=== PATIENT | female | born 1955 | race Caucasian/White ===

== ENCOUNTER 2020-02-27 14:24 | Emergency (ER) | payer OTHER, SELFPAY ==
--- NOTE | ~2020-02-27 | XR_ITS ---
EXAMINATION: XR chest 2V DATE: 02/27/2020 15:06 INDICATION: Cough with left-sided chest pain. TECHNIQUE: frontal and lateral views of the chest were obtained. COMPARISON: Chest radiograph dated 07/20/2004 FINDINGS: Scattered reticulonodular opacities in both lungs most prominent in the right upper lung zone. Mild l inear discoid atelectasis in the right mid lung and at the right costophrenic angle. No pleural effus ion or pneumothorax. The cardiomediastinal silhouette is normal. Calcified left hilar lymph nodes con sistent with old granulomatous disease. Atherosclerotic aorta. Cholecystectomy clips in the right upp er quadrant. IMPRESSION: 1. Bilateral reticulonodular opacities in the acute setting concerning for pneumonia. Differential wo uld include metastatic disease if there is a known history of malignancy although the lower lungs ranulfo ear clear on the CT study dated 09/03/2019. Recommend radiographic follow-up to resolution. Reviewed, dictated and finalized at location A. IMPRESSION: 1. Bilateral reticulonodular opacities in the acute setting concerning for pneu monia. Differential would include metastatic disease if there is a known histor y of malignancy although the lower lungs appear clear on the CT study dated . Recommend radiographic follow-up to resolution.
[2020-02-27 14:45] VITALS: BP 143/97; PULSE 74; RESP 18; TEMP 36.8; O2SAT 97
--- NOTE | 2020-02-27 14:56 | ED.GENADULT ---
HPI - General Adult General Chief complaint: Upper Respiratory Infection Stated complaint: cough/left rib pain History of Present Illness HPI narrative: This is a 64 year old that comes in complaiining of coughing and not feeling well. Patient denies having a fever but has been coughing and states that she is prone to pneumonia and she feels horrible. Patient states she would like to have a xray. Patient denies any diarrhea, vomiting, fever or shortness of breath Related Data Home Medications Medication Instructions Recorded Confirmed dicyclomine 20 mg tablet 20 mg PO BID 09/20/19 mesalamine 400 mg capsule (with 400 mg PO QID 11/01/19 delayed release tablets inside) magnesium oxide 02/27/20 Allergies Allergy/AdvReac Type Severity Reaction Status Date / Time codeine Allergy Unknown Unknown Verified 01/13/20 14:10 thiopental Allergy Unknown CONFUSION Verified 01/13/20 14:10 Review of Systems Review of Systems: Narrative: CONSTITUTIONAL: Denies fever, chills, or sweats. Malaise and fatigue EYES: Denies visual changes, redness, or discharge. ENT: Denies rhinorrhea, congestion, sore throat, or otalgia. Coughing CARDIOVASCULAR:Denies chest pain, palpitations, or edema. RESPIRATORY: Denies cough or dyspnea. GASTROINTESTINAL: Denies abdominal pain, nausea, vomiting, or diarrhea. GENITOURINARY: Denies dysuria or hematuria. SKIN:[Denies rash or itching. MUSCULOSKELETAL:Denies back pain, joint pain, or myalgia. NEUROLOGIC: Denies headache, numbness, or weakness. PSYCHIATRIC:Denies anxiety or depression PMFSH Social History Social History Smoking status: Current every day smoker Alcohol intake: never Comments At time as signature, I have reviewed and agree with nursing past medical, social, surgical and family history. Please see nursing chart for further information. There is no relevant family history pertinent to the presenting complaint. Exam Narrative: Exam Narrative: GENERAL:Well-appearing, well-nourished, and in no acute distress. Patient disheveled HEAD:Normocephalic, atraumatic. EYES: PERRLA and EOMI. ENT: Nares clear, no rhinorrhea or epistaxis. Mucous membranes moist. Right lung slightly diminished in upper lobe NECK: Supple. CHEST: Clear to auscultation. No respiratory distress. HEART: Regular rate and rhythm. No murmur heard. Normal peripheral pulses. ABDOMEN: Soft, nontender, nondistended, normal active bowel sounds. EXTREMITIES: Normal range of motion. No edema. SKIN: Warm, dry, no rash. NEURO: No focal deficits. Alert and oriented x3. Course Vital Signs Vital signs: Vital Signs Temperature 98.2 F 02/27/20 14:45 Pulse Rate 74 02/27/20 14:45 Respiratory Rate 18 02/27/20 14:45 Blood Pressure 143/97 H 02/27/20 14:45 Pulse Oximetry 97 02/27/20 14:45 Temperature 98.2 F 02/27/20 14:45 Pulse Rate 74 02/27/20 14:45 Respiratory Rate 18 02/27/20 14:45 Blood Pressure 143/97 H 02/27/20 14:45 Pulse Oximetry 97 02/27/20 14:45 Medical Decision Making Vital Signs Vital Signs: Vital Signs Temperature 98.2 F 02/27/20 14:45 Pulse Rate 74 02/27/20 14:45 Respiratory Rate 18 02/27/20 14:45 Blood Pressure 143/97 H 02/27/20 14:45 Pulse Oximetry 97 02/27/20 14:45 Temperature 98.2 F 02/27/20 14:45 Pulse Rate 74 02/27/20 14:45 Respiratory Rate 18 02/27/20 14:45 Blood Pressure 143/97 H 02/27/20 14:45 Pulse Oximetry 97 02/27/20 14:45 Discharge Plan Discharge Clinical Impression: Pneumonia Qualifiers: Pneumonia type: due to unspecified organism Laterality: unspecified laterality Lung location: upper lobe of lung Qualified Code(s): J18.9 - Pneumonia, unspecified organism Patient Disposition: Home, Self-Care Condition: Stable Instructions: Antibiotic Form, Community Acquired Pneumonia (ED) Additional Instructions: As we discussed you need to call your primary care prov
== END 2020-02-27 15:35 | disposition home or self-care (01) ==
PROVIDERS: Emergency Provider Nurse Practitioner Family; PCP Family Medicine
DX: J18.9 Pneumonia, unspecified organism (principal); I10 Essential (primary) hypertension; F17.200 Nicotine dependence, unspecified, uncomplicated
CPT/HCPCS: 71046; 99213; G0463

== ENCOUNTER 2020-03-30 17:01 | Outpatient (CLI) | payer OTHER, SELFPAY ==
--- NOTE | ~2020-03-30 | XR_ITS ---
EXAMINATION: XR chest 2V DATE: 03/30/2020 17:31 INDICATION: Other nonspecific abnormal finding lung field, left-sided chest pain TECHNIQUE: PA and lateral views of the chest are obtained. COMPARISON: 02/27/2020 FINDINGS: The previously described nodular opacities have nearly completely resolved. There are are p ersistent reticular and airspace opacities in the lungs, right greater than left. There is no pleural effusion or pneumothorax. There is no pleural effusion or pneumothorax. The cardiomediastinal silhou ette is normal. There is mild thoracic spondylosis. Calcified left hilar lymph nodes are consistent w ith old granulomatous disease. Surgical clips in the right upper quadrant are likely from prior rosalva cystectomy. IMPRESSION: 1. Persistent reticular and airspace opacities in the lungs with resolution of the previously identif ied nodular opacities, most likely resolving pneumonia. Reviewed, dictated and finalized at location A. IMPRESSION: 1. Persistent reticular and airspace opacities in the lungs with resolution of the previously identified nodular opacities, most likely resolving pneumonia.
[2020-03-30 18:08] LABS: Basophils Absolute Auto 0.1 K/mm3 (0.0-0.1); Basophils Percent Auto 0.7 % (0.2-1.2); Eosinophils Absolute Auto 0.2 K/mm3 (0-0.3); Eosinophils Percent Auto 2.5 % (0-4.4); Hematocrit 38.6 % (37.0-47.0); Hemoglobin 12.6 g/dL (12.0-15.0); Immature Granulocyte Absolute 0.04 K/mm3 (0.00-0.031); Immature Granulocyte Percent A 0.5 % (0-0.5); Lymphocytes Absolute Auto 2.48 K/mm3 (0.9-3.2); Lymphocytes Percent Auto 29.4 % (18.3-44.2); Mean Corpuscular HGB Conc 32.6 g/dl (32-36); Mean Corpuscular Volume 94.8 fl (80-100); Monocytes Absolute Auto 0.7 K/mm3 (0.1-0.6); Monocytes Percent Auto 8.8 % (2.6-8.5); Neutrophils Absolute Auto 4.9 K/mm3 (1.3-6.7); Neutrophils Percent Auto 58.1 % (45.5-73.1); Platelet Count Result 334 k/mm3 (150-375); Red Blood Count 4.07 M/mm3 (4.2-5.4); Red Cell Distribution Width 13.5 % (11.5-14.5); White Blood Count 8.4 K/mm3 (4.5-10.0)
[2020-03-30 18:25] LABS: Blood Urea Nitrogen 9 mg/dL (7-17); Calcium 10.5 mg/dL (8.4-10.2); Carbon Dioxide 28 mmol/L (22-30); Chloride 103 mmol/L (98-107); Estimated Glomerular Filt Rate > 60; Glucose 88 mg/dL (65-105); Sodium 135 mmol/L (137-145)
== END 2020-03-30 17:02 | disposition home or self-care (01) ==
LOC: ANHIMG 17:05
PROVIDERS: PCP Family Medicine; Visit Provider Nurse Practitioner Family
DX: R91.8 Other nonspecific abnormal finding of lung field (principal); R05 Cough; R53.1 Weakness; D64.9 Anemia, unspecified
CPT/HCPCS: 36415; 71046; 80048; 85025

== ENCOUNTER 2020-04-08 19:35 | Inpatient (IN) | payer OTHER, SELFPAY ==
--- NOTE | ~2020-04-08 | CT_ITS ---
EXAMINATION: CTA chest PE protocol DATE: 04/09/2020 07:37 CDT INDICATION: Syncope. Shortness of breath. TECHNIQUE: Computed tomographic angiography (CTA) of the chest was performed with 100 mL Omnipaque-35 0 intravenous contrast. The dose-length product was 232.22 mGy-cm. Maximum intensity projection 3D-re constructions of the aorta and other arteries were constructed by the technologist on a separate work station. Automated exposure control and iterative reconstruction technique were employed. COMPARISON: Chest x-ray dated 04/08/2020. FINDINGS: Study is limited by respiratory motion and beam hardening artifact which limits evaluation of the right upper lobe distal segmental and subsegmental pulmonary arteries. No pulmonary embolism i dentified in the remainder of the pulmonary arteries. No evidence for thoracic aortic aneurysm or dis section. Trace pericardial effusion. There is atherosclerosis of the aorta and coronary arteries. Tra ce right pleural effusion. Numerous reticulonodular densities bilaterally predominantly affecting the upper lobes, although ther e are additional nodular densities in the lower lobes. There is mild-moderate right upper lobe bronch ial wall thickening with mucous plugging distally. There is mediastinal and right hilar lymphadenopat hy. There is evidence for chronic granulomatous disease. There are multiple hypovascular lesions of t he liver, largest measuring 2.3 cm in the right hepatic lobe, concerning for metastatic disease. Ther e are small focal sclerotic lesions in T8 and T9 vertebral bodies as well as faint sclerotic densitie s throughout multiple thoracic vertebral bodies, suspicious for metastatic disease. IMPRESSION: 1. No large central pulmonary embolism. Limited evaluation of the right upper lobe segmental and subs egmental pulmonary arteries due to respiratory motion and beam hardening artifact. 2: Numerous reticulonodular densities in both lungs with small focal irregular foci of consolidation and septal thickening, concerning for widespread pulmonary metastatic disease and possible lymphangit ic carcinomatosis in the additional hepatic and osseous findings. Reviewed, dictated and finalized at location A. IMPRESSION: 1. No large central pulmonary embolism. Limited evaluation of the right upper l obe segmental and subsegmental pulmonary arteries due to respiratory motion and beam hardening artifact. 2: Numerous reticulonodular densities in both lungs with small focal irregular foci of consolidation and septal thickening, concerning for widespread pulmonar y metastatic disease and possible lymphangitic carcinomatosis in the additional hepatic and osseous findings.
--- NOTE | ~2020-04-08 | XR_ITS ---
XR chest 2V 04/08/2020 20:17 Indication: History of pneumonia. Dyspnea. Procedure: 2 view chest Comparison: 03/30/2020 Findings: There has been progression of right upper lobe pneumonia. Heart size normal. Left lung reji r. Elevated right diaphragm. No pleural effusion or pneumothorax. Impression: 1: Interval progression of right upper lobe pneumonia. Reviewed, dictated and finalized at location A. Impression: 1: Interval progression of right upper lobe pneumonia.
--- NOTE | ~2020-04-08 | CT_ITS ---
EXAMINATION: CT abdomen pelvis w con DATE: 04/09/2020 08:59 INDICATION: Metastatic disease. Weakness. TECHNIQUE: Computed tomography (CT) of the abdomen and pelvis was performed with 100 cc Omnipaque 350 intravenous contrast. The dose-length product was 868.10 mGy-cm. Automated exposure control and iter ative reconstruction technique were employed. COMPARISON: CT dated 09/03/2019 FINDINGS: There are numerous reticulonodular densities in the visualized lung parenchyma preferential ly affecting the upper lobes, consistent with metastatic disease. Right hilar lymphadenopathy partial ly visualized. Heart size normal. Trace right pleural effusion. Interval development of multiple hypovascular masses of the liver involving both lobes, compatible wi th metastatic disease. There are calcified granulomas of the spleen. The pancreas, adrenal glands and right kidney are unremarkable. There is a subcentimeter hypodensity of the left kidney, most likely benign cysts. There is atherosclerosis of the aorta without evidence for aneurysm. There is nodular i nfiltration of the peritoneum of the mid and lower abdomen anteriorly, suspicious for peritoneal carc inomatosis. Appendix is normal. Colonic diverticulosis without evidence for diverticulitis. Multiple enlarged periuterine veins, which can be associated with pelvic congestion syndrome. Scattered small sclerotic lesions of the pelvis and spine, consistent with metastatic disease. IMPRESSION: 1. Widespread metastatic disease including innumerable reticulonodular densities in the visualized mick ng parenchyma, right hilar lymphadenopathy, multiple hypovascular masses of the liver, scattered scle rotic lesions of the visualized bones as well as probable peritoneal carcinomatosis. Reviewed, dictated and finalized at location A. IMPRESSION: 1. Widespread metastatic disease including innumerable reticulonodular densitie s in the visualized lung parenchyma, right hilar lymphadenopathy, multiple hypo vascular masses of the liver, scattered sclerotic lesions of the visualized bon es as well as probable peritoneal carcinomatosis.
--- NOTE | ~2020-04-08 | US_ITS ---
EXAMINATION: US biopsy liver DATE: 04/10/2020 12:07 INDICATION: Liver mass. TECHNIQUE: The procedure including the risks, benefits, and alternatives was discussed with the patie nt. Risks discussed included bleeding and infection. The patient understood the risks and agreed to p roceed. The skin overlying the liver was prepped and draped in usual sterile fashion. Anesthetic was administered with 1% lidocaine subcutaneously. An 18 gauge core biopsy needle was then used to obta in 4 core biopsy specimens under continuous sonographic guidance. The entry site was cleaned and dres sed. There were no immediate complications. FINDINGS: Ultrasound images demonstrate the needle in a 3.0 x 2.2 cm mass in left hepatic lobe. IMPRESSION: 1. Ultrasound-guided core needle biopsy of a liver mass. Reviewed, dictated and finalized at location A.
--- NOTE | ~2020-04-08 | CT_ITS ---
EXAMINATION: CT brain w con DATE: 04/09/2020 08:58 INDICATION: Metastatic disease. Evaluate for brain mass. TECHNIQUE: Computed tomography (CT) of the head was performed with 100 cc Omnipaque 350 intravenous c ontrast. The dose-length product was 605.33 mGy-cm. Automated exposure control and iterative reconstr uction technique were employed. COMPARISON: CT dated 09/08/2018 FINDINGS: No acute infarction or hemorrhage. No abnormal contrast enhancement. No focal masses or mas s effect. There are scattered mild periventricular and subcortical white matter changes, most likely related to small vessel ischemic disease (microangiopathy). IMPRESSION: 1. No evidence for intracranial metastases. No acute intracranial abnormality. 2: Chronic age-related findings. Reviewed, dictated and finalized at location A.
[2020-04-08 19:42] VITALS: BP 136/64; PULSE 59; RESP 19; TEMP 36.2; O2SAT 100
[2020-04-08 20:05] VITALS: PULSE 62
--- NOTE | 2020-04-08 20:08 | ECG_ITS ---
Measurements Intervals Guild Rate: 58 P: 58 MS: 157 QRS: 38 QRSD: 106 T: 72 QT: 394 QTc: 388 Interpretive Statements SINUS BRADYCARDIA BORDERLINE ST-T WAVE ABNORMALITY- LATERAL LEADS BORDERLINE ECG Electronically Signed On 04-09-2020 7:27:34 CDT by Kwan Prieto D.O.
[2020-04-08 20:13] LABS: Basophils Absolute Auto 0.1 K/mm3 (0.0-0.1); Basophils Percent Auto 0.5 % (0.2-1.2); Eosinophils Absolute Auto 0.2 K/mm3 (0-0.3); Eosinophils Percent Auto 1.1 % (0-4.4); Hematocrit 37.5 % (37.0-47.0); Hemoglobin 12.5 g/dL (12.0-15.0); Immature Granulocyte Percent A 1.5 % (0-0.5); Lymphocytes Absolute Auto 3.09 K/mm3 (0.9-3.2); Lymphocytes Percent Auto 23.5 % (18.3-44.2); Mean Corpuscular HGB Conc 33.3 g/dl (32-36); Mean Corpuscular Volume 93.1 fl (80-100); Mean Platelet Volume 9.1 fl (7.4-10.4); Monocytes Absolute Auto 1.2 K/mm3 (0.1-0.6); Monocytes Percent Auto 9.1 % (2.6-8.5); Neutrophils Absolute Auto 8.5 K/mm3 (1.3-6.7); Neutrophils Percent Auto 64.3 % (45.5-73.1); Platelet Count Result 387 k/mm3 (150-375); Red Blood Count 4.03 M/mm3 (4.2-5.4); Red Cell Distribution Width 13.4 % (11.5-14.5); White Blood Count 13.2 K/mm3 (4.5-10.0)
[2020-04-08 20:21] VITALS: BP 162/60; PULSE 64
--- NOTE | 2020-04-08 20:22 | ED.GENADULT ---
HPI - General Adult General Chief complaint: Syncope Stated complaint: syncopal episode 3 days ago Time Seen by Provider: 04/08/20 19:55 Source: RN notes reviewed History of Present Illness HPI narrative: Patient presents emergency department from home for weakness. Patient states 2 days ago she got up to use the restroom and states that time she felt weak and clammy. She states that she had lower herself to the ground and had to lay there for several hours. States that since that time she has been having generalized weakness. She states is associated with some mild nausea as well as some mild pain in the bilateral flank. She denies any fevers or chills chest pain shortness of breath cough vomiting diarrhea or any other symptoms. States she called her PCP today Dr. Maldonado instructed her to come to the emergency department for further evaluation Related Data Home Medications Medication Instructions Recorded Confirmed amlodipine 5 mg PO DAILY 04/08/20 metoprolol succinate 100 mg PO BID 04/08/20 Allergies Allergy/AdvReac Type Severity Reaction Status Date / Time codeine Allergy Unknown Unknown Verified 04/08/20 23:29 thiopental Allergy Unknown CONFUSION Verified 04/08/20 23:29 Review of Systems Review of Systems: Narrative: Gen.: Denies fevers or chills Eyes: Denies eye pain or visual change ENT: Denies congestion Respiratory: Denies shortness of breath or cough CV: Denies chest pain or palpitations GI: Denies abdominal pain reports nausea denies emesis or diarrhea denies burning, urgency, frequency or hematuria Musculoskeletal: Denies back pain or muscle pain Neuro: Denies numbness, tingling, reports weakness and dizziness Skin: Denies rash Except as documented, all other systems reviewed and negative [facility] Past Medical History Medical History Anemia Anxiety Cerebrovascular small vessel disease Crohn's disease Essential hypertension GERD without esophagitis Hyperlipidemia, unspecified Hypokalemia Hypomagnesemia Hyponatremia Insomnia Reticulonodular infiltrate present on imaging of chest Vitamin D deficiency Social History Social History Smoking status: Current every day smoker Alcohol intake: never Gender identity (if verbalized by the patient): Female Exam Narrative: Exam Narrative: APPEARANCE: No acute distress, nontoxic, resting in bed EYES: EOMI, Leland HEENT: Normocephalic, atraumatic, oromucosa dry no erythema exudate posterior pharynx RESPIRATORY: No respiratory distress Clear to auscultation bilaterally with no rhonchi wheezing or rales. CARDIOVASCULAR: Regular rate and rhythm without murmurs rubs or gallops. ABDOMINAL: Soft, nontender, nondistended, no rebound or guarding MUSCULOSKELETAl: Moves all extremities. No clubbing, cyanosis or edema. NEURO: Awake and alert x 3. Following commands, speech normal, no focal deficits SKIN:: Warm, dry. No rashes lesions or abrasions PSYCHIATRIC: Normal affect/mood, Course Course Emergency Course: Discussed with Dr. Villafana agrees with admission at this time recommend starting patient Rocephin and Zithromax request CT scan of chest rule out for mass Discussed with patient and family results of workup and diagnosis. Discussed need for admission. Patient and family understand and agree to current treatment plan. Did discuss with the patient CT of the chest with concern of cancer and need for further work-up all questions answered Vital Signs Vital signs: Vital Signs Temperature 97.1 F L 04/08/20 19:42 Pulse Rate 59 L 04/08/20 19:42 Respiratory Rate 19 04/08/20 19:42 Blood Pressure 136/64 04/08/20 19:42 Pulse Oximetry 100 04/08/20 19:42 Temperature 97.1 F L 04/08/20 19:42 Pulse Rate 68 04/08/20 23:09 Respiratory Rate 18 04/08/20 23:09 Blood Pressure 166/114 H 04/08/20 23:09 Pulse Oximetry 100 04/08/20 23:09
[2020-04-08 20:26] LABS: Blood Urea Nitrogen 15 mg/dL (7-17); Calcium 10.2 mg/dL (8.4-10.2); Carbon Dioxide 31 mmol/L (22-30); Chloride 97 mmol/L (98-107); Estimated CRCL calculation 54 ml/min; Estimated Glomerular Filt Rate > 60; Glucose 133 mg/dL (65-105); Potassium 3.1 mmol/L (3.4-5.0); Sodium 133 mmol/L (137-145)
[2020-04-08] MEDS: SODIUM CHLORIDE 0.9% IV 1,000 ML 999 ML IV CONT (20:32)
[2020-04-08 20:44] LABS: INR 1.1; Prothrombin Time 13.5 Seconds (11.1-14.7)
[2020-04-08 20:45] LABS: Partial Thromboplastin Time 31.1 SECONDS (22.3-36.8)
[2020-04-08 21:16] LABS: Alanine Aminotransferase 17 U/L (4-35); Albumin Level 3.8 g/dL (3.5-5.1); Alkaline Phosphatase 98 U/L (38-126); Aspartate Amino Transferase 31 U/L (14-36); Bilirubin,Total 0.8 mg/dL (0.2-1.3)
[2020-04-08 21:27] LABS: Troponin I < 0.012 ng/mL (0.000-0.034)
[2020-04-08 21:36] LABS: Add Urine Microscopic? YES; Appearance Urine Clear (Clear); Bacteria Urine 2+ /hpf; Bilirubin Urine Negative (Negative); Blood Urine Negative (Negative); Color Urine Straw (Yellow); Glucose Urine UA Negative (Negative); Ketones Urine Negative (Negative); Leukocyte Esterase Ur Trace LEU/UL (Negative); Nitrate Urine Negative (Negative); Protein Urine Negative (Negative); RBC Urine 0-2 /hpf (0-2); Specific Grav Ur 1.009 (1.001-1.035); Squamous Epithelial Cell Urine Occasional /hpf (Few); Urobilinogen Urine Negative mg/dL (<2.0)
[2020-04-08 21:38] VITALS: BP 164/62; PULSE 71
[2020-04-08 21:41] VITALS: BP 135/93; PULSE 72
[2020-04-08] MEDS: POTASSIUM CHLORIDE 20 MEQ TABLET 40 MEQ PO (23:03)
[2020-04-08 23:09] VITALS: BP 166/114; PULSE 68; RESP 18; O2SAT 100
[2020-04-09] VITALS (13 sets, daily range): BP systolic 125–166; BP diastolic 56–92; PULSE 57–68; RESP 14–20; TEMP 35.9–36.8; O2SAT 97–100; BMI 28.5
[2020-04-09] MEDS: SODIUM CHLORIDE 0.9% IV 1,000 ML 80 ML IV CONT ×2 (01:31→13:43)
--- NOTE | 2020-04-09 02:05 | ADMGEN ---
This patient, Tena Medrano, was admitted to Medical Room [facility] at 0045 04/09/2020. Patient/family oriented to hospital policies and general routines including ID bracelet, bed and alarms, visiting hours, pain management, procedures, bathroom and other care routines, personal items, smoking policy, room service/diet, and visiting hours. Valuables list has been completed. Information on how to activate the Rapid Response Team has been discussed. Patient/Family are encouraged to report perceived risks to care and to ask questions if they do not understand what they are told or what they should do.
[2020-04-09 02:51] LABS: Troponin I < 0.012 ng/mL (0.000-0.034)
[2020-04-09 05:31] LABS: Basophils Absolute Auto 0.1 K/mm3 (0.0-0.1); Basophils Percent Auto 0.4 % (0.2-1.2); Eosinophils Absolute Auto 0.1 K/mm3 (0-0.3); Hematocrit 35.9 % (37.0-47.0); Hemoglobin 11.9 g/dL (12.0-15.0); Immature Granulocyte Absolute 0.12 K/mm3 (0.00-0.031); Immature Granulocyte Percent A 0.9 % (0-0.5); Lymphocytes Absolute Auto 2.27 K/mm3 (0.9-3.2); Lymphocytes Percent Auto 17.9 % (18.3-44.2); Mean Corpuscular HGB Conc 33.1 g/dl (32-36); Mean Corpuscular Volume 93.5 fl (80-100); Mean Platelet Volume 8.9 fl (7.4-10.4); Monocytes Absolute Auto 1.3 K/mm3 (0.1-0.6); Monocytes Percent Auto 9.8 % (2.6-8.5); Neutrophils Absolute Auto 8.9 K/mm3 (1.3-6.7); Platelet Count Result 338 k/mm3 (150-375); Red Blood Count 3.84 M/mm3 (4.2-5.4); Red Cell Distribution Width 13.4 % (11.5-14.5); White Blood Count 12.7 K/mm3 (4.5-10.0)
[2020-04-09 05:43] LABS: Blood Urea Nitrogen 11 mg/dL (7-17); Calcium 9.6 mg/dL (8.4-10.2); Carbon Dioxide 27 mmol/L (22-30); Chloride 101 mmol/L (98-107); Estimated CRCL calculation 63 ml/min; Estimated Glomerular Filt Rate > 60; Glucose 90 mg/dL (65-105); Potassium 3.7 mmol/L (3.4-5.0); Sodium 134 mmol/L (137-145)
[2020-04-09 05:53] LABS: Troponin I < 0.012 ng/mL (0.000-0.034)
[2020-04-09] MEDS: ACETAMINOPHEN 325 MG TABLET 650 MG PO (05:59)
[2020-04-09] MEDS: ROSUVASTATIN 10 MG TABLET 40 MG PO (09:32)
[2020-04-09] MEDS: ESCITALOPRAM OXALATE 10 MG TABLET 20 MG PO (09:32)
[2020-04-09] MEDS: FAMOTIDINE 20 MG TABLET 40 MG PO (09:33)
[2020-04-09] MEDS: METOPROLOL SUCCINATE EXT REL 100 MG TABCR PO ×2 (09:33→20:50)
[2020-04-09] MEDS: LOSARTAN POTASSIUM 50 MG TABLET PO (09:33)
[2020-04-09] MEDS: AMLODIPINE BESYLATE 5 MG TABLET PO (09:33)
[2020-04-09] MEDS: KETOROLAC 15 MG/ML VIAL (*BKC) IV PUSH ×2 (09:36→22:37)
--- NOTE | 2020-04-09 10:42 | PM.IMHP ---
H&P: HPI History of Present Illness Chief complaint: Community aquired pneumonia, pulminary nodule Narrative: Tena Medrano is a 64 year old female history of COPD, current cigarette smoker, hypertension, ulcerative colitis, who presented to the emergency department with over 1 month of dry cough, generalized weakness, lack of energy, decreased appetite, and some weight loss. The patient states over a month ago she went to an urgent care and was diagnosed with pneumonia and prescribed amoxicillin. She was discharged home to follow-up with her primary care provider who repeated chest x-ray which continued to show pneumonia and at that time she was prescribed Levaquin. She was also tested for COVID due to her symptoms and it was negative. She followed up with her primary care again and they prescribed some steroids. Patient states she has not really felt any better and continued to have symptoms and came to the emergency room. She reports having a dry cough, and notice some shortness of breath when walking to the bathroom in the emergency department last night. Initial vitals showed, Temperature of 97.1?, blood pressure 136/64, heart rate 59, respiratory rate 19, oxygen saturation 100% on room air. Initial labs showed leukocytosis at 13,200, with some elevation to her monocytes slightly. Normal coag panel. CMP showed hyponatremia at 133, hypokalemia at 3.1, serum bicarb was slightly elevated at 31, troponins were negative x3. Urinalysis showed trace leukocyte esterase, WBCs 7-9, bacteria 2+. Chest x-ray showed interval progression of right upper lobe pneumonia. CTA chest was ordered which showed no PE. It did show Numerous reticulonodular densities in both lungs with small focal irregular foci of consolidation and septal thickening, concerning for widespread pulmonary metastatic disease and possible lymphangitic carcinomatosis in the additional hepatic and osseous findings. The patient was admitted into the hospital under observation for treatment of acute pneumonia to be started on IV ceftriaxone and azithromycin, further evaluation for possible metastatic cancer, consult to Oncology and further monitoring. Code status: Do not intubate [id number]: , Rosalino and her 2 sons, Crow and Mil Primary care provider: Dr. Maldonado Review of Systems Review of Systems: Narrative: She denies any fever, chills, vomiting, abdominal pain, leg swelling, calf pain, masses on her breast, or any other symptoms at this time. She reports having a headache for the last 4 days located at the top of her head and her bilateral temples. She reports associated photophobia and phonophobia. She denies any vision changes. She states earlier she was going down for a CT scan and became anxious and had some substernal sharp chest pains. She states that lasted a couple of minutes and it felt like needles sticking in the center of her chest. She denies any diaphoresis, nausea, shortness of breath, radiation of her pain, or any other symptoms. She states she thinks it is her anxiety because too many things were going on at this same time . She denies any more chest pain at this time. She states she has not eaten in 3 days due to her decreased appetite and states that she has decreased urination is well and believe she could be dehydrated. She denies any dysuria, or flank pain. She has been having some lower back pain for the last few days after she was laying on her floor for a few hours. She has these episodes that she has been having for the last 25 years intermittently where she suddenly becomes diaphoretic, clammy, dizzy and she feels like she is going to fall. This usually happens when she is on the toilet having a bowel movement but a few days ago it happened when she got up from bed. She had lowered herself onto the floor and she laid there for a few hours because of how she was feeling. She denies any syncope, head trauma, injury, falls, or any other sympto
[2020-04-09] MEDS: PANTOPRAZOLE 40 MG TABLET PO ×2 (11:34→20:50)
[2020-04-09] MEDS: NICOTINE (*PBKC) 7 MG PATCH 1 PATCH TRANSDERM (13:43)
[2020-04-09] MEDS: ALPRAZOLAM 0.5 MG TABLET PO (21:13)
[2020-04-10] VITALS (10 sets, daily range): BP systolic 147–160; BP diastolic 54–76; PULSE 59–78; RESP 16–24; TEMP 36.5–37; O2SAT 94–100
[2020-04-10] MEDS: SODIUM CHLORIDE 0.9% IV 1,000 ML 80 ML IV CONT ×2 (04:17→17:16)
[2020-04-10 06:05] LABS: Basophils Absolute Auto 0.1 K/mm3 (0.0-0.1); Basophils Percent Auto 0.5 % (0.2-1.2); Eosinophils Absolute Auto 0.1 K/mm3 (0-0.3); Eosinophils Percent Auto 1.4 % (0-4.4); Hematocrit 31.4 % (37.0-47.0); Hemoglobin 10.4 g/dL (12.0-15.0); Immature Granulocyte Absolute 0.09 K/mm3 (0.00-0.031); Immature Granulocyte Percent A 0.9 % (0-0.5); Lymphocytes Absolute Auto 2.62 K/mm3 (0.9-3.2); Lymphocytes Percent Auto 25.9 % (18.3-44.2); Mean Corpuscular HGB Conc 33.1 g/dl (32-36); Mean Corpuscular Volume 93.5 fl (80-100); Mean Platelet Volume 9.5 fl (7.4-10.4); Monocytes Absolute Auto 1.1 K/mm3 (0.1-0.6); Monocytes Percent Auto 10.6 % (2.6-8.5); Neutrophils Absolute Auto 6.1 K/mm3 (1.3-6.7); Neutrophils Percent Auto 60.7 % (45.5-73.1); Platelet Count Result 334 k/mm3 (150-375); Red Blood Count 3.36 M/mm3 (4.2-5.4); Red Cell Distribution Width 13.3 % (11.5-14.5); White Blood Count 10.1 K/mm3 (4.5-10.0)
[2020-04-10 06:19] LABS: Blood Urea Nitrogen 8 mg/dL (7-17); Calcium 9.6 mg/dL (8.4-10.2); Carbon Dioxide 25 mmol/L (22-30); Chloride 103 mmol/L (98-107); Estimated CRCL calculation 55 ml/min; Estimated Glomerular Filt Rate > 60; Glucose 90 mg/dL (65-105); Potassium 3.6 mmol/L (3.4-5.0); Sodium 132 mmol/L (137-145)
[2020-04-10] MEDS: NICOTINE (*PBKC) 7 MG PATCH 1 PATCH TRANSDERM (08:50)
--- NOTE | 2020-04-10 09:16 | PM.IMPN ---
Progress Note: A&P Assessment and Plan (1) Abnormal CT scan: Code(s): R93.89 - Abnormal findings on diagnostic imaging of other specified body structures Status: Acute Assessment and Plan: Found to have acute metastatic disease on imaging on arrival. CTA chest showed Numerous reticulonodular densities in both lungs with small focal irregular foci of consolidation and septal thickening, concerning for widespread pulmonary metastatic disease and possible lymphangitic carcinomatosis in the additional hepatic and osseous findings. CT chest abdomen pelvis with contrast showed Widespread metastatic disease including innumerable reticulonodular densities in the visualized lung parenchyma, right hilar lymphadenopathy, multiple hypovascular masses of the liver, scattered sclerotic lesions of the visualized bones as well as probable peritoneal carcinomatosis. CT brain with contrast did not show any metastases noted. I called Dr. Conway oncology who will evaluate the patient today. Patient is going to be going down for an ultrasound-guided liver biopsy today for further diagnosis for her cancer. Dr. Conway will evaluate the patient today and, with a further plan. Continue monitoring patient's symptoms. P.r.n. pain control as needed. (2) UTI (urinary tract infection): Code(s): N39.0 - Urinary tract infection, site not specified Status: Acute Assessment and Plan: UA was abnormal and she also reports having symptoms of decreased urination which could be secondary to some dehydration but the IV antibiotic she is receiving will treat an underlying UTI. Urine culture is growing Gram-negative bacilli. She is receiving IV ceftriaxone which should cover this and we will wait for urine cultures to finalize. (3) Community acquired pneumonia: Code(s): J18.9 - Pneumonia, unspecified organism Status: Acute Assessment and Plan: Chest x-ray initially showed right upper lobe pneumonia. While she is here we will start her on IV antibiotics, IV ceftriaxone and azithromycin for community-acquired pneumonia. Her vitals are stable at this time, afebrile, non tachycardic, normal oxygenation on room air but she has had leukocytosis. She continues to have a dry cough and had some shortness of breath with exertion. Will continue treatment at this time and monitoring her symptoms. (4) Acute hypokalemia: Code(s): E87.6 - Hypokalemia Status: Acute Assessment and Plan: Potassium is normal today at 3.6. Continue monitoring daily. (5) Tobacco abuse: Code(s): Z72.0 - Tobacco use Status: Acute Assessment and Plan: Smoking sensation given for 3 minutes. She would like a nicotine patch at this time and she states it has helped her in the past while she has been hospitalized. (6) Hyponatremia: Code(s): E87.1 - Hypo-osmolality and hyponatremia Status: Acute Assessment and Plan: She has a history of low sodium when I review her prior labs which appear to be 128-135. Could be secondary to her medications. But is stable at this time. Continue monitoring daily. Time Spent With Patient Time with patient: 25 - 35 minutes Subjective Date/time seen: 04/10/20 09:16 Interval history: Date of service 04/10/2020: The patient reports feeling anxious about her liver biopsy later today. She otherwise just feels very weak, fatigued and has no energy, which is the reason why she came into the hospital. She states her urination is becoming more frequent and clearing up in color. She denies any dysuria. She denies coughing, shortness of breath, chest pain, fever, chills, nausea, vomiting, abdominal pa
[2020-04-10] MEDS: METOPROLOL SUCCINATE EXT REL 100 MG TABCR PO ×2 (13:09→21:20)
[2020-04-10] MEDS: AMLODIPINE BESYLATE 5 MG TABLET PO (13:09)
[2020-04-10] MEDS: PANTOPRAZOLE 40 MG TABLET PO ×2 (13:09→21:20)
[2020-04-10] MEDS: ROSUVASTATIN 10 MG TABLET 40 MG PO (13:09)
[2020-04-10] MEDS: ESCITALOPRAM OXALATE 10 MG TABLET 20 MG PO (13:10)
[2020-04-10] MEDS: LOSARTAN POTASSIUM 50 MG TABLET PO (13:10)
[2020-04-10] MEDS: KETOROLAC 15 MG/ML VIAL (*BKC) IV PUSH ×2 (13:14→22:30)
--- NOTE | 2020-04-10 18:27 | CONS_ITS ---
DATE OF CONSULTATION: REASON FOR CONSULTATION: Metastatic cancer. HISTORY OF PRESENTING ILLNESS: This is a 64-year-old female with history of smoking along with COPD and ulcerative colitis. She came into the ER with 1 month history of off-and-on dry cough without any hemoptysis and generalized weakness and lack of energy. She also lost 15-pound weight in the last couple of months. She was recently treated for pneumonia and was also tested negative for COVID infection. CTA chest was ordered that showed no pulmonary embolism, but it did show numerous reticulonodular densities in both lungs concerning for widespread pulmonary metastatic disease with lymphangitic carcinomatosis as well as liver and bone metastasis. She was admitted to the hospital for treatment for pneumonia and was started on IV antibiotic therapy. The patient denies any previous history of malignancy. She denies any bone pain, but does have intermittent headaches. REVIEW OF SYSTEMS: 12-point review of system was reviewed and as per HPI, otherwise negative. PAST MEDICAL HISTORY: Crohn disease, essential hypertension, GERD, hyperlipidemia, history of CVA, anxiety, anemia, insomnia, vitamin D deficiency. PAST SURGICAL HISTORY: Cholecystectomy, EGD, tubal ligation. FAMILY HISTORY: Father of CVA. Mother of dementia. Grandparent had throat cancer. SOCIAL HISTORY: The patient smokes 1 pack per day for 40 years duration. She lives with the . Denies any alcohol intake. HOME MEDICATIONS: Reviewed. ALLERGIES: REVIEWED. PHYSICAL EXAMINATION: GENERAL: This patient is a well-developed, well-nourished female, no apparent distress. Alert and oriented. VITAL SIGNS: Per nursing note. HEENT: Normocephalic, atraumatic. Clear oropharynx. LUNGS: Clear to auscultation bilaterally. CARDIOVASCULAR: Regular rate and rhythm. No murmurs. ABDOMEN: Soft, nontender, nondistended. Bowel sounds are positive in all 4 quadrants. No hepatosplenomegaly. EXTREMITIES: No edema. NEUROLOGIC: Grossly intact. LABORATORY DATA: WBC 10.1, hemoglobin 10.4, platelet 334,000. Creatinine 0.8, total bilirubin 0.8, AST 31, ALT 17. ASSESSMENT AND PLAN: Metastatic disease. The patient is a pleasant 64-year-old female with history of smoking one-pack per day for 40 years' duration, came into the hospital with generalized weakness, dry cough, headache, and worsening shortness of breath. She was recently treated for pneumonia and completed a course of antibiotic therapy. She was checked for coronavirus disease infection and came back negative. CT scan was performed that showed widespread metastatic disease involving innumerable reticulonodular densities throughout the lung, right hilar lymphadenopathy, multiple hypovascular masses of the liver and scattered sclerotic lesions of the bone. There was also probable peritoneal carcinomatosis. I have recommended ultrasound-guided biopsy of the liver mass, which has been performed and pathology is pending. I have discussed the possibility of metastatic lung cancer with the patient. I have provided her my office information for followup. I have also discussed that most likely she will need systemic chemotherapy and MediPort placement would be required. I have answered all the questions to patient's satisfaction. I would like to thank for allowing us to see this patient in consultation. TEENA CORDOVA M.D. AUTHORIZER AUTHORIZER D [place]: [place]
[2020-04-11] MEDS: ALPRAZOLAM 0.5 MG TABLET PO ×2 (01:25→08:41)
[2020-04-11 05:31] LABS: Basophils Absolute Auto 0.1 K/mm3 (0.0-0.1); Basophils Percent Auto 0.6 % (0.2-1.2); Eosinophils Absolute Auto 0.1 K/mm3 (0-0.3); Eosinophils Percent Auto 1.4 % (0-4.4); Hematocrit 32.1 % (37.0-47.0); Hemoglobin 10.7 g/dL (12.0-15.0); Immature Granulocyte Absolute 0.07 K/mm3 (0.00-0.031); Immature Granulocyte Percent A 0.8 % (0-0.5); Lymphocytes Absolute Auto 2.86 K/mm3 (0.9-3.2); Lymphocytes Percent Auto 32.8 % (18.3-44.2); Mean Corpuscular HGB Conc 33.3 g/dl (32-36); Mean Corpuscular Hemoglobin 30.9 pg (26-34); Mean Corpuscular Volume 92.8 fl (80-100); Monocytes Percent Auto 10.9 % (2.6-8.5); Neutrophils Absolute Auto 4.7 K/mm3 (1.3-6.7); Neutrophils Percent Auto 53.5 % (45.5-73.1); Platelet Count Result 335 k/mm3 (150-375); Red Blood Count 3.46 M/mm3 (4.2-5.4); Red Cell Distribution Width 13.1 % (11.5-14.5); White Blood Count 8.7 K/mm3 (4.5-10.0)
[2020-04-11 05:44] LABS: Blood Urea Nitrogen 6 mg/dL (7-17); Calcium 9.9 mg/dL (8.4-10.2); Carbon Dioxide 28 mmol/L (22-30); Chloride 105 mmol/L (98-107); Estimated CRCL calculation 55 ml/min; Estimated Glomerular Filt Rate > 60; Glucose 95 mg/dL (65-105); Potassium 3.5 mmol/L (3.4-5.0); Sodium 137 mmol/L (137-145)
[2020-04-11 06:00] VITALS: BP 148/54; PULSE 64; RESP 18; TEMP 36.6; O2SAT 96
[2020-04-11 08:30] VITALS: PULSE 64
[2020-04-11] MEDS: NICOTINE (*PBKC) 7 MG PATCH 1 PATCH TRANSDERM (08:30)
[2020-04-11] MEDS: AMLODIPINE BESYLATE 5 MG TABLET PO (08:30)
[2020-04-11] MEDS: PANTOPRAZOLE 40 MG TABLET PO (08:30)
[2020-04-11] MEDS: METOPROLOL SUCCINATE EXT REL 100 MG TABCR PO (08:30)
[2020-04-11] MEDS: POTASSIUM CHLORIDE 20 MEQ TABLET PO (08:30)
[2020-04-11] MEDS: LOSARTAN POTASSIUM 50 MG TABLET PO (08:30)
[2020-04-11] MEDS: ESCITALOPRAM OXALATE 10 MG TABLET 20 MG PO (08:30)
[2020-04-11] MEDS: ROSUVASTATIN 10 MG TABLET 40 MG PO (08:31)
--- NOTE | 2020-04-11 09:30 | PM.DS ---
DS: Admitting Diagnosis Admitting Diagnosis Admitting Diagnosis: Abnormal findings on diagnostic imaging of other specified body structures DS: Discharge Diagnosis Discharge Diagnosis (1) Abnormal CT scan: Code(s): R93.89 - Abnormal findings on diagnostic imaging of other specified body structures Status: Acute Assessment and Plan: Found to have likely acute metastatic disease on imaging on arrival. CTA chest showed Numerous reticulonodular densities in both lungs with small focal irregular foci of consolidation and septal thickening, concerning for widespread pulmonary metastatic disease and possible lymphangitic carcinomatosis in the additional hepatic and osseous findings. CT chest abdomen pelvis with contrast showed Widespread metastatic disease including innumerable reticulonodular densities in the visualized lung parenchyma, right hilar lymphadenopathy, multiple hypovascular masses of the liver, scattered sclerotic lesions of the visualized bones as well as probable peritoneal carcinomatosis. CT brain with contrast did not show any metastases noted. Liver biopsy performed yesterday; pathology is pending. Dr. Conway consulted and appreciate recommendations; likely need follow up as an outpatient. Discussed case with Dr. Conway who is okay with discharge from his point of view with likely need for follow up to have a port placed. Patient declines any pain medication at this time (2) UTI (urinary tract infection): Code(s): N39.0 - Urinary tract infection, site not specified Status: Acute Assessment and Plan: UA was suggestive of UTI; UCx grew kleb pneumoniae susceptible to Rocephin. She had decreased urine and weakness, but this has improved. Patient already treated with IV rocephin for possible CAP. Will switch to PO cefdinir today and complete 7 total day course of antibiotics of cephalosporin (3) Community acquired pneumonia: Code(s): J18.9 - Pneumonia, unspecified organism Status: Acute Assessment and Plan: Chest x-ray initially showed right upper lobe pneumonia. CTA showed RUL bronchial wall thickening with mucus plugging. IV rocephin and azithromycin during stay. VSS, afebrile, tolerating RA. Leukocytosis improved to WNL Will continue Azithromycin PO to complete 5 total days, then cefdinir for 7 total days of 3rd gen cephalosporin F/u with PCP Will recommend Mucinex (4) Acute hypokalemia: Code(s): E87.6 - Hypokalemia Status: Acute Assessment and Plan: Potassium is normal today at 3.5. Supplementation prior to discharge F/u with BMP on 04/14 F/u with PCP (5) Tobacco abuse: Code(s): Z72.0 - Tobacco use Status: Acute Assessment and Plan: Smoking cessation given during stay. Nicotine patch as needed (6) Hyponatremia: Code(s): E87.1 - Hypo-osmolality and hyponatremia Status: Acute Assessment and Plan: Na 137 today. She has a history of low sodium with Na between 128-135. Could be secondary to her medications. Stable BMP on 04/14 F/u with PCP DS: Summary Hospital Course Reason for hospitalization: CAP, generalized weakness, hypokalemia; CTA chest suspicious for pulmonary metastatic disease Hospital Course: Patient is a 64 yo F with history of COPD, current cigarette smoker, hypertension, ulcerative colitis, who presented to the emergency department on 04/08 with over 1 month of dry cough, generalized weakness, lack of energy, decreased appetite, and some weight loss. While in the ER, CTA of chest showed signs of scattered, tiny bilateral nodular densities, concerning for possible metastatic disease vs infection. She was also foun
[2020-04-11] MEDS: CEFDINIR 300 MG CAPSULE PO (11:26)
== END 2020-04-11 11:55 | disposition home or self-care (01) | DRG 194 ==
LOC: ANHED 23:37 → ANH2MED 04-09 00:03
PROVIDERS: Physician Assistant; Admitting Provider Internal Medicine; Emergency Provider Emergency Medicine; PCP Family Medicine; Visit Provider Physician Assistant
DX: J18.9 Pneumonia, unspecified organism (principal); E87.1 Hypo-osmolality and hyponatremia; J44.0 Chronic obstructive pulmonary disease with (acute) lower respiratory infection; N39.0 Urinary tract infection, site not specified; K50.90 Crohn's disease, unspecified, without complications; R93.89 Abnormal findings on diagnostic imaging of other specified body structures; B96.1 Klebsiella pneumoniae [K. pneumoniae] as the cause of diseases classified elsewhere; E87.6 Hypokalemia; R53.1 Weakness; I67.9 Cerebrovascular disease, unspecified; K21.9 Gastro-esophageal reflux disease without esophagitis; I10 Essential (primary) hypertension; E78.5 Hyperlipidemia, unspecified; F17.210 Nicotine dependence, cigarettes, uncomplicated; F41.9 Anxiety disorder, unspecified; G47.00 Insomnia, unspecified; Z79.899 Other long term (current) drug therapy; Z86.73 Personal history of transient ischemic attack (TIA), and cerebral infarction without residual deficits; Z90.49 Acquired absence of other specified parts of digestive tract
CPT/HCPCS: 36415; 47000; 70460; 71046; 71275; 74177; 76942; 80048; 80076; 81001; 83605; 84484; 85025; 85610; 85730; 87040; 87077; 87086; 87088; 87186; 88307; 88312; 93005; 96360; 96361; 96365; 96366; 96367; 96375; 96376; 99285; A9270; G0378; J0131; J0456; J0696; J1885; J7030; Q9967

== ENCOUNTER 2020-05-04 12:59 | Outpatient (CLI) | payer OTHER, SELFPAY ==
--- NOTE | ~2020-05-04 | PE_ITS ---
EXAMINATION: PET skull to mid thigh DATE: 05/04/2020 15:23 INDICATION: Liver metastases. Disorder of lung. TECHNIQUE: Blood glucose level was 98 mg/dL. 9.702 mCi of 18-fluorodeoxyglucose (18-FDG) was administ ered i.v. Low dose computed tomography (CT) images were acquired from the base of the brain to the pr oximal thighs for attenuation correction and anatomic localization. Positron emission tomography (PET ) images were acquired in the same distribution beginning 57 minutes after injection. Images includin g fused PET/CT images were reconstructed in axial, coronal, and sagittal planes. Automated exposure c ontrol technique was employed. The dose-length product was 585.88mGy-cm. COMPARISON: CT abdomen and pelvis dated 04/09/[address] chest dated 04/08/2020 FINDINGS: Head/neck: There is symmetric increased activity in the oral cavity, palatine tonsils, parotid glands, and ocul ar muscles without CT correlate, likely physiologic. There are a few normal sized but FDG avid lymph nodes along the bilateral jugular chains with maximal SUV of 8.8 on the right and 5.9 on the left. Chest: There is masslike region of consolidation extending cephalad from the right hilum in the posterior me dial right upper lobe with associated increased FDG uptake with maximal SUV of 8.5 which is concernin g for primary bronchogenic carcinoma. There is also increased uptake associated with the reticular no dular airspace disease in the right upper and middle lobes which is concerning for lymphangitic carci nomatosis although differential would include pneumonia. There is increased FDG uptake extending caud ally along the right hilum likely related to metastatic lymphadenopathy. Additional FDG avid likely m etastatic right paratracheal lymph nodes. Small to moderate sized posterior layering right pleural ef fusion. Left lung is clear with no abnormal FDG uptake. Heart size is normal. Atherosclerotic coronar y artery calcifications. Trace pericardial fluid. Abdomen/pelvis/proximal thighs: There is intense FDG uptake associated with numerous hypodense masses scattered throughout the liver, the largest in the right hepatic lobe measuring approximately 4.5 x 3.0 cm. Physiologic renal accumu lation and excretion of FDG activity in the kidneys, bladder and along portions of ureters. Cholecys tectomy clips the gallbladder fossa. Splenic calcification consistent with old granulomatous disease. Pancreas and bilateral adrenal glands are normal. Normal appendix. Diffuse activity throughout the s tomach without radiologic correlate which is likely physiologic. Mild to moderate uptake scattered th roughout the bowels also without radiologic correlate, and also likely physiologic. Small amount of i nfiltrating soft tissue along the greater omentum which demonstrates mild increased FDG uptake consis tent with likely omental metastatic disease. Small uterine fibroid. No free intraperitoneal gas or fl uid. No pathologically enlarged or FDG avid abdominal, pelvic or inguinal lymphadenopathy. Musculoskeletal: There are numerous sclerotic bone lesions with increased FDG uptake throughout the axial and appendic ular skeleton consistent with widespread osseous metastatic disease. L5 spondylolysis with bilateral pars interarticularis defects with severe L5-S1 disc height loss and 8 mm anterolisthesis L5 on S1. IMPRESSION: 1. Widespread metastatic disease including lymphangitic carcinomatosis in the right upper and lower l obes, metastatic right hilar, mediastinal and bilateral cervical lymphadenopathy, numerous hepatic an d bone metastases as well as likely metastatic invasion of the greater omentum. A larger FDG avid rig ht upper lobe mass may represent a primary bronchogenic carcinoma. Similar either ultrasound-guided r ebiopsy of the liver or ultrasound-guided biopsy of one of the bilateral jugular chain lymph nodes. 2. Small to moderate sized likely
[2020-05-04 14:07] LABS: Glucose Point of Care 98 (65-105)
== END 2020-05-04 13:00 | disposition home or self-care (01) ==
PROVIDERS: PCP Family Medicine; Visit Provider Internal Medicine Critical Care Medicine
DX: J98.4 Other disorders of lung (principal); J90 Pleural effusion, not elsewhere classified
CPT/HCPCS: 78815; A9552

== ENCOUNTER 2020-05-05 00:18 | Outpatient (CLI) | payer OTHER, SELFPAY ==
[2020-05-05 20:58] LABS: SARS-CoV-2 RNA PCR Negative
== END 2020-05-05 00:19 | disposition home or self-care (01) ==
LOC: ANHCOVIDDT 00:18
PROVIDERS: PCP Family Medicine; Visit Provider Internal Medicine Critical Care Medicine
DX: Z01.812 Encounter for preprocedural laboratory examination (principal); Z11.59 Encounter for screening for other viral diseases
CPT/HCPCS: 87635; C9803; U0003

== ENCOUNTER 2020-05-18 07:50 | Outpatient (CLI) | payer OTHER, SELFPAY ==
[2020-05-11 13:16] VITALS: BMI 27.8
[2020-05-18] VITALS (10 sets, daily range): BP systolic 102–142; BP diastolic 61–79; PULSE 52–60; RESP 14–24; O2SAT 93–100
--- NOTE | ~2020-05-18 | US_ITS ---
EXAMINATION: US thoracentesis DATE: 05/18/2020 11:21 INDICATION: Right pleural effusion TECHNIQUE: The procedure and its risks and benefits were discussed with the patient. Potential risks discussed included bleeding, infection, and pneumothorax. The patient understood the risks and agreed to proceed. The skin was prepped and draped in sterile fashion. 1% lidocaine was used for local anes thesia. Under ultrasound guidance, a 5 Fr catheter with trochar was advanced into the small right ple ural effusion. Fluid was aspirated. The catheter was removed, and a dressing was applied. There were no immediate complications. FINDINGS: Ultrasound images demonstrate a small right pleural effusion and the catheter within the fluid. IMPRESSION: 1. Successful ultrasound-guided thoracentesis yielding 500 mL of clear giancarlo-colored fluid. Reviewed, dictated and finalized at location A. IMPRESSION: 1. Successful ultrasound-guided thoracentesis yielding 500 mL of clear giancarlo-c olored fluid.
--- NOTE | ~2020-05-18 | US_ITS ---
EXAMINATION: US biopsy liver DATE: 05/18/2020 11:20 INDICATION: Metastatic disease with liver lesions TECHNIQUE: The procedure including the risks and benefits was discussed with the patient. Risks discu ssed included bleeding and infection. The patient understood the risks and agreed to proceed. The sk in overlying the left hepatic lobe was prepped and draped in usual sterile fashion. Anesthetic was a dministered with 1% lidocaine subcutaneously. An 18 gauge core biopsy needle was advanced under cont inuous ultrasound observation to the lesion of interest. 4 core biopsy specimens were obtained. The needle was removed and the entry site was cleaned and dressed. Post procedure ultrasound demonstrat ed no hemorrhage. FINDINGS: Ultrasound images demonstrate multiple hypoechoic masses in the left hepatic lobe. Subseque nt images demonstrate biopsy needle advanced into an approximately 2.8 cm lesion in segment 2 of the liver as well as a second adjacent 1.3 similar nodules in segment 2. IMPRESSION: 1. Successful Ultrasound-guided biopsy of a couple hypoechoic masses in the left hepatic lobe. Reviewed, dictated and finalized at location A. IMPRESSION: 1. Successful Ultrasound-guided biopsy of a couple hypoechoic masses in the lef t hepatic lobe.
--- NOTE | ~2020-05-18 | XR_ITS ---
EXAMINATION: XR chest 1V DATE: 05/18/2020 10:51 INDICATION: Status post right thoracentesis TECHNIQUE: frontal view of the chest was obtained. COMPARISON: Chest radiograph and CT dated 04/08/2020 FINDINGS: No evident pleural effusion or pneumothorax post right thoracentesis. There is increasing consolidati on in the right upper lung zone. Multiple subtle small nodules scattered throughout both lungs. Enlar gement of the right hilar shadow likely related to metastatic lymphadenopathy. Heart size is normal. Cholecystectomy clips in the right upper quadrant. IMPRESSION: 1. No pleural effusion or pneumothorax post right thoracentesis. 2. Increasing consolidation in the right upper lung zone likely related to malignancy and potentially associated atelectasis or postobstructive pneumonia. 3. Multiple small nodules scattered throughout both lungs consistent with additional metastatic disea se. Reviewed, dictated and finalized at location A. IMPRESSION: 1. No pleural effusion or pneumothorax post right thoracentesis. 2. Increasing consolidation in the right upper lung zone likely related to sammy gnancy and potentially associated atelectasis or postobstructive pneumonia. 3. Multiple small nodules scattered throughout both lungs consistent with addit ional metastatic disease.
[2020-05-18 08:12] LABS: Mean Platelet Volume 9.1 fl (7.4-10.4); Platelet Count Result 287 k/mm3 (150-375)
[2020-05-18 08:32] LABS: INR 1.1; Prothrombin Time 13.6 Seconds (11.1-14.7)
== END 2020-05-18 13:30 | disposition home or self-care (01) ==
PROVIDERS: Radiology Diagnostic Radiology; PCP Family Medicine; Visit Provider Internal Medicine Hematology & Oncology
DX: C34.90 Malignant neoplasm of unspecified part of unspecified bronchus or lung (principal); C79.9 Secondary malignant neoplasm of unspecified site; R91.8 Other nonspecific abnormal finding of lung field
CPT/HCPCS: 32555; 36415; 47000; 71045; 76942; 85049; 85610; 87015; 87116; 87205; 87206; 88104; 88108; 88305; 88307; 88342

== ENCOUNTER 2020-05-26 10:41 | Outpatient (CLI) | payer OTHER, SELFPAY ==
--- NOTE | ~2020-05-26 | MMUS_ITS ---
EXAMINATION: MM diagnostic mireya BI w aramis, US breast LT limited HISTORY: Bilateral diagnostic mammogram, history of widely metastatic cancer with unknown primary TECHNIQUE: Craniocaudal, mediolateral, and mediolateral oblique 3-D tomosynthesis images of the breas ts were performed and synthetic 2-D images were generated. CAD analysis was submitted and interpreted . High resolution limited left breast ultrasound was performed. COMPARISON: No prior mammogram is currently available for comparison at this institution. FINDINGS: MAMMOGRAPHIC FINDINGS: There is no evidence of suspicious mass, calcification, or architectural distortion in either breast to suggest malignancy. Left breast focal asymmetry does not persist with spot compression views. ULTRASOUND: There is no evidence of focal abnormal solid or cystic lesion in the vicinity of the left breast foca l asymmetry. IMPRESSION: 1. No mammographic or sonographic evidence of malignancy. 2. Recommend routine screening mammography in one year. BI-RADS Category 1: Negative Reviewed, dictated and finalized at location A. IMPRESSION: 1. No mammographic or sonographic evidence of malignancy. 2. Recommend routine screening mammography in one year. BI-RADS Category 1: Negative
[2020-05-26 13:51] LABS: Basophils Absolute Auto 0.1 K/mm3 (0.0-0.1); Basophils Percent Auto 1.1 % (0.2-1.2); Eosinophils Absolute Auto 0.2 K/mm3 (0-0.3); Eosinophils Percent Auto 2.1 % (0-4.4); Hematocrit 41.7 % (37.0-47.0); Hemoglobin 13.9 g/dL (12.0-15.0); Immature Granulocyte Absolute 0.01 K/mm3 (0.00-0.031); Immature Granulocyte Percent A 0.1 % (0-0.5); Lymphocytes Absolute Auto 1.95 K/mm3 (0.9-3.2); Mean Corpuscular HGB Conc 33.3 g/dl (32-36); Mean Corpuscular Hemoglobin 30.5 pg (26-34); Mean Corpuscular Volume 91.6 fl (80-100); Mean Platelet Volume 9.3 fl (7.4-10.4); Monocytes Absolute Auto 0.7 K/mm3 (0.1-0.6); Monocytes Percent Auto 9.1 % (2.6-8.5); Neutrophils Absolute Auto 4.6 K/mm3 (1.3-6.7); Neutrophils Percent Auto 61.6 % (45.5-73.1); Platelet Count Result 305 k/mm3 (150-375); Red Blood Count 4.55 M/mm3 (4.2-5.4); Red Cell Distribution Width 14.1 % (11.5-14.5); White Blood Count 7.5 K/mm3 (4.5-10.0)
[2020-05-26 14:04] LABS: Alanine Aminotransferase 23 U/L (4-35); Albumin Level 4.1 g/dL (3.5-5.1); Alkaline Phosphatase 132 U/L (38-126); Aspartate Amino Transferase 52 U/L (14-36); Bilirubin,Total 0.3 mg/dL (0.2-1.3); Blood Urea Nitrogen 15 mg/dL (7-17); Calcium 10.5 mg/dL (8.4-10.2); Carbon Dioxide 26 mmol/L (22-30); Chloride 102 mmol/L (98-107); Estimated Glomerular Filt Rate > 60; Glucose 96 mg/dL (65-105); Potassium 3.7 mmol/L (3.4-5.0); Sodium 136 mmol/L (137-145)
== END 2020-05-26 10:42 | disposition home or self-care (01) ==
PROVIDERS: PCP Family Medicine; Visit Provider Internal Medicine Hematology & Oncology
DX: C79.9 Secondary malignant neoplasm of unspecified site (principal); R92.8 Other abnormal and inconclusive findings on diagnostic imaging of breast
CPT/HCPCS: 36415; 76642; 77062; 77066; 80053; 85025; G0279

== ENCOUNTER 2020-06-03 03:19 | Outpatient (CLI) | payer OTHER, SELFPAY ==
[2020-06-03 23:05] LABS: SARS-CoV-2 RNA PCR Negative
== END 2020-06-03 03:20 | disposition home or self-care (01) ==
LOC: ANHCOVIDDT 03:20
PROVIDERS: PCP Family Medicine; Visit Provider Surgery
DX: Z01.812 Encounter for preprocedural laboratory examination (principal); Z11.59 Encounter for screening for other viral diseases
CPT/HCPCS: 87635; C9803; U0003

== ENCOUNTER 2020-06-06 01:04 | Day surgery (SDC) | payer OTHER, SELFPAY ==
[2020-05-31 13:59] VITALS: BMI 27.3
--- NOTE | ~2020-06-06 | XR_ITS ---
EXAMINATION: XR fl guide central line place DATE: 06/06/2020 13:19 INDICATION: Port placement. TECHNIQUE: 2 intraoperative fluoroscopic views of the chest were obtained. I was not present. Fluoros copy exposure time was 44 seconds. COMPARISON: Chest single view 05/18/2020 FINDINGS: There is a right internal jugular port with tip at superior cavoatrial junction. There are airspace opacities in right upper lung zone. IMPRESSION: 1. Port tip at superior cavoatrial junction. 2. Worsened airspace opacities in right upper lung zone, consistent with malignancy and atelectasis v ersus pneumonia. Reviewed, dictated and finalized at location A. IMPRESSION: 1. Port tip at superior cavoatrial junction. 2. Worsened airspace opacities in right upper lung zone, consistent with malign kylah and atelectasis versus pneumonia.
--- NOTE | ~2020-06-06 | XR_ITS ---
EXAMINATION: XR chest port-a-cath/central DATE: 06/06/2020 13:43 INDICATION: Port placement. TECHNIQUE: A single frontal view of the chest was obtained. COMPARISON: Chest single view 05/18/2020 FINDINGS: There is volume loss of right hemithorax with elevation of right hemidiaphragm. There are w orsened airspace opacities in right upper lung zone. There is a diffuse interstitial pattern in the l ungs. There is a small right pleural effusion. No pneumothorax. The heart size is normal. Surgical cl ips in the right upper quadrant are likely from cholecystectomy. There is a right internal jugular po rt with tip at superior cavoatrial junction. IMPRESSION: 1. Port tip at superior cavoatrial junction. 2. Worsened airspace opacities in right upper lung zone, consistent with malignancy and right upper l obe collapse. 3. Diffuse interstitial pattern in the lungs, likely mild pulmonary edema. 4. Small right pleural effusion. Reviewed, dictated and finalized at location A. IMPRESSION: 1. Port tip at superior cavoatrial junction. 2. Worsened airspace opacities in right upper lung zone, consistent with malign kylah and right upper lobe collapse. 3. Diffuse interstitial pattern in the lungs, likely mild pulmonary edema. 4. Small right pleural effusion.
--- NOTE | 2020-06-06 07:52 | PM.HPGS ---
History of Present Illness History of Present Illness Consent: Risks, benefits, and alternatives of placement of a Port-A-Cath have been discussed and questions answered. Patient agrees to proceed with procedure. Chief complaint: Mestastatic Disease Narrative: Tena Medrano is a 64 year old female who apparently late last month began complaining of upper abdominal pain. CT scan revealed liver omental and bony metastasis. Workup for a primary has been unsuccessful so far but cholangiocarcinoma suspected. No signs signs of lung cancer on workup with PET scan and CT scans. Patient is not a smoker. Mammogram were not mammograms were negative although the tumor was of strongly 3+ her 2 positive. Patient had a virtual visit with Dr. Conway and is planning to see him in the office round June 09. He has requested that we place a Port-A-Cath for use in chemotherapy. Review of Systems Constitutional: Constitutional: Reports no additional constitutional complaints, Reports fatigue and Denies malaise Eyes: Eyes: Denies change in vision and Denies loss of vision ENT: Reports Normal hearing present, Denies change in voice, Denies dizziness, Denies hoarseness and Denies sore throat Cardiovascular: Cardiovascular: Denies chest pain, Denies leg edema and Denies dyspnea Respiratory: Respiratory: Denies cough, Denies dyspnea and Denies wheezing Gastrointestinal: Gastrointestinal: Denies hematochezia, Denies change in bowel habits and Denies heartburn Genitourinary: Genitourinary: Denies urinary frequency and Denies urinary incontinence Neurologic: Reports Normal hearing present, Denies confusion, Denies dizziness, Denies loss of vision, Denies memory loss and Denies seizure-like activity Psychiatric: Psychiatric: Denies confusion, Denies depression and Denies memory loss Endocrine: Endocrine: Denies cold intolerance and Reports fatigue Hematologic/Lymphatic: Hematologic/Lymphatic: Denies easy bleeding and Denies easy bruising Allergic/Immunologic: Allergic/Immunologic: Denies wheezing PMFSH Past Medical History Medical History (Updated 06/06/20 @ 08:03 by Mehrdad Turner MD) Anemia (Unknown) Anxiety Cerebrovascular small vessel disease COPD (chronic obstructive pulmonary disease) (Unknown) Crohn's disease Depression Essential hypertension (Unknown) GERD without esophagitis Hyperlipidemia, unspecified Hypokalemia Hypomagnesemia Hyponatremia Insomnia Lung cancer Reticulonodular infiltrate present on imaging of chest Tobacco abuse (Unknown) Ulcerative colitis Vitamin D deficiency (Unknown) Surgical History Surgical History Hx of cholecystectomy Hx of colonoscopy Hx of esophagogastroduodenoscopy Hx of tubal ligation Social History Social History (Updated 05/01/20 @ 13:07 by Fariba Olivas [facility]) Smoking packs per day: 0.75 Smoking cigarettes per day: 15.0 Years smoked: 30 Smoking pack-years: 22.50 Smoking status: Current every day smoker Tobacco type: cigarettes Alcohol intake: never Substance use: never Substance use type: does not use Additional living arrangements comments: She lives in [place] with her , Rosalino. Additional occupation/education comments: She works from home for a [employer] Gender identity (if verbalized by the patient): Female Spiritual care concerns: No Meds Home Medications and Allergies Home Medications Medication Instructions Recorded Confirmed Type escitalopram oxalate 20 mg tablet 20 mg PO DAILY #30 tablet 11/01/19 06/06/20 Rx rosuvastatin 40 mg tablet 40 mg PO DAILY #30 tablet 02/07/20 06/06/20 Rx albuterol sulfate 1 puff INHALATION QID PRN #8.5 gm 02/27/20 05/31/20 Rx metoprolol succinate 100 mg PO Q12H 04/08/20 06/06/20 History losartan 50 mg tablet 50 mg PO DAILY #30 tablet 04/13/20 06/06/20 Rx nicotine 21 mg/24 hr daily 1 patch TRANSDERM DAILY #28 each 04/13/20 06/06/20
--- NOTE | 2020-06-06 10:30 | WPDANESEPPF ---
Anes - Initial Pre Proc Eval Procedure: Operation Date: 06/06/20 12:00 Proposed Procedures p Insertion Prasanth Cath - Mehrdad Turner MD Date/Time: 06/06/20 10:30 Surgeon: Mehrdad Turner MD Pre Op Diagnosis: Mestastatic Disease Patient Data Age: 64 Gender: F Height: 5 ft 1 in Weight: 64.9 kg Allergies Allergy/AdvReac Type Severity Reaction Status Date / Time thiopental Allergy Intermediate CONFUSION Verified 06/06/20 10:04 [email or web address] [From Ambien] AdvReac Intermediate Confusion Verified 06/06/20 10:04 codeine AdvReac Mild Vomiting Verified 06/06/20 10:04 Home Medications Medication Instructions Recorded Confirmed Type escitalopram oxalate 20 mg tablet 20 mg PO DAILY #30 tablet 11/01/19 06/06/20 Rx rosuvastatin 40 mg tablet 40 mg PO DAILY #30 tablet 02/07/20 06/06/20 Rx albuterol sulfate 1 puff INHALATION QID PRN #8.5 gm 02/27/20 05/31/20 Rx metoprolol succinate 100 mg PO Q12H 04/08/20 06/06/20 History losartan 50 mg tablet 50 mg PO DAILY #30 tablet 04/13/20 06/06/20 Rx nicotine 21 mg/24 hr daily 1 patch TRANSDERM DAILY #28 each 04/13/20 06/06/20 Rx transdermal patch amlodipine 5 mg tablet 5 mg PO DAILY #90 tablet 04/24/20 06/06/20 Rx nortriptyline 25 mg PO HS PRN 05/03/20 05/31/20 History omeprazole 20 mg capsule,delayed 20 mg PO DAILY #90 cap 06/01/20 06/06/20 Rx release alprazolam 0.5 mg tablet 0.5 mg PO BID PRN #60 tablet 06/05/20 06/06/20 Rx Patient hx anesthesia problems: none Family hx anesthesia problems: none PMFSH Past Medical History Medical History (Updated 06/06/20 @ 08:03 by Mehrdad Turner MD) Anemia (Unknown) Anxiety Cerebrovascular small vessel disease COPD (chronic obstructive pulmonary disease) (Unknown) Crohn's disease Depression Essential hypertension (Unknown) GERD without esophagitis Hyperlipidemia, unspecified Hypokalemia Hypomagnesemia Hyponatremia Insomnia Lung cancer Reticulonodular infiltrate present on imaging of chest Tobacco abuse (Unknown) Ulcerative colitis Vitamin D deficiency (Unknown) Surgical History Surgical History Hx of cholecystectomy Hx of colonoscopy Hx of esophagogastroduodenoscopy Hx of tubal ligation Social History Social History (Updated 05/01/20 @ 13:07 by Fariba Olivas, [facility]) Smoking packs per day: 0.75 Smoking cigarettes per day: 15.0 Years smoked: 30 Smoking pack-years: 22.50 Smoking status: Current every day smoker Tobacco type: cigarettes Alcohol intake: never Substance use: never Substance use type: does not use Additional living arrangements comments: She lives in [place] with her , Rosalino. Additional occupation/education comments: She works from home for a [employer] Gender identity (if verbalized by the patient): Female Spiritual care concerns: No Anes - Eval Final PreProcedure Day of Procedure 06/06/20 10:30 Patient weight: normal Heart: regular rate and rhythm Lungs: clear to auscultation Airway: Mallampati scale class II Neurological: alert and oriented Last oral intake: >/= 8 hours ASA classification: IV Emergent: no Anesthetic plan: proceed Anesthesia type and monitoring: general GIVS and standard monitoring Informed Consent: The patient's anesthetic plan and its attendant risks and benefits were discussed with the patient/family/POA. Questions were solicited and answers provided to the satisfaction of the patient/family/POA.
[2020-06-06] MEDS: LACTATED RINGERS 1,000 ML 30 ML IV CONT (10:35)
[2020-06-06] MEDS: KETOROLAC 15 MG/ML VIAL (*BKC) IV PUSH (10:36)
[2020-06-06 10:38] VITALS: BP 132/71; PULSE 70; RESP 16; TEMP 36.1; O2SAT 97
[2020-06-06] MEDS: ceFAZolin 2 GM/D5W 50 ML 2 GM/50 ML BAG IVPB (12:23)
--- NOTE | 2020-06-06 12:32 | SUR.PREOP ---
1200 Discussed delay with patient. Up to bathroom.
[2020-06-06] MEDS: BUPIVACAINE/EPINEPHRINE 0.5% 10 ML VIAL 20 ML INFILTRATE (12:36)
[2020-06-06] MEDS: HEPARIN SODIUM 5,000 UNITS/ML VIAL 5000 UNITS IRRIGATION (12:37)
[2020-06-06 13:27] VITALS: BP 111/64; PULSE 77; RESP 14; O2SAT 92
--- NOTE | 2020-06-06 13:41 | SUR.PHASEII ---
4575; CXR DONE AT BEDSIDE
--- NOTE | 2020-06-06 13:45 | PM.PROC ---
Procedure Note - Detailed Date of procedure: 06/06/20 Pre-op diagnosis: Mestastatic Disease Tumor of unknown primary Post-op diagnosis: same Procedure performed: placement of Port-A-Cath Description of procedure: Patient was seen and marked in the pre-op area prior to coming to the OR. Patient was brought to the operating room. She was placed supine on the operating table and general IV sedation was induced. The nurse insulation hoseman provided oxygen and IV sedation. Patient's head was carefully turned to the left side while in the supine position and the patient's entire neck and anterior chest on both sides was prepped and draped in the usual sterile fashion. Following this the appropriate time-out was completed confirming procedure and patient. We confirmed that all the needed equipment was present in the room. Following this the ultrasound probe was draped into the field and using the probe we carefully identified the carotid artery and jugular vein on the right neck. I marked the skin directly over the Rt. internal jugular vein. Following this, using the continuous ultrasound guidance, a Cook needle was placed through the skin into this vein. I then was able to draw back good dark blood. Once this was completed a guidewire using a J-tip was advanced through the needle and then the needle and the guidewire cover were withdrawn. C-arm fluoroscopy was used to help get thewire to go in and to confirm that the guidewire was nicely in the central venous system. Once this was confirmed with the C - arm I preceded on by making the pocket for the port on the patient's anterior right chest approximately 3 centimeters below the clavicle overlying the chest wall. Local anesthetic was infiltrated into the skin where there was a transverse incision marked out. Incision was made and we made a pocket inferior to the incision with just a little dissection superior. The Bard low-profile port was tried in the pocket and seemed to fit well. Following this the catheter which had been placed on a tunneling device was tunneled from the port site on the anterior right chest up to the right neck where a small incision had been made with an #11 blade knife. Then the catheter was pulled through so that we would have 15 centimeters to put into the central venous system once the dilation took place. Following this we placed the dilator and sheath over the guidewire in the jugular vein and carefully dilated the tract into the central venous system. The guidewire and dilator were then removed, carefully covering the end of the sheath to prevent air embolus. The end of the catheter which had been cut off straight across and the tip checked was then inserted into the sheath and into the neck. I then carefully pulled the 2 arms of the tear-away sheath away as the practice assistant held the catheter in position with a DeBakey forceps. Following this we checked the position of the catheter with C-arm fluoroscopy confirming that the tip seemed to be in the distal superior vena cava near the junction with the right atrium. I felt that it was in good position and so the rest of the catheter was pulled down toward the feet into the port site. We then measured to the appropriate position to cut the catheter to attach it to the port stem. Then the connector sealing device for the catheter port was placed onto the catheter and then the catheter cut to the appropriate length and inserted onto the stem of the port. Then the connector was advanced onto the stem over the catheter sealing it to the port. A single 3- 0 Prolene suture was also used during this to suture the connector to the port and to the underlying musculature. Following this at one other site the port was sutured to the underlying musculature with the 3-0 Proline. Both prior to connecting the catheter to the port and then using a straight Hong needle following this connection, the port was aspirated of good dark blood and flushed with hepar
--- NOTE | 2020-06-06 13:51 | SUR.PHASEII ---
1345; PT RESTING QUIETLY. RESP EVEN UNLABORED. P,W,D. DENIES PAIN OR NAUSEA.
--- NOTE | 2020-06-06 13:58 | SUR.PHASEII ---
PT AWAKE AND ALERT. UP TO RECLINER. DR TORRES STATES CXR LINE PLACEMENT GOOD. PT GIVEN DRINK.
[2020-06-06 14:00] VITALS: BP 137/67; PULSE 72; RESP 16; O2SAT 93
[2020-06-06 14:30] VITALS: BP 130/60; PULSE 70; RESP 16
--- NOTE | 2020-06-06 15:02 | SUR.PHASEII ---
1445; PT AWAKE AND ALERT. DENIES PAIN OR NAUSEA. STATES READY TO GO HOME. MEETS DISCHARGE CRITERIA.
== END 2020-06-06 15:05 | disposition home or self-care (01) ==
PROVIDERS: PCP Family Medicine; Visit Provider Surgery
PROC: (CPT 36561; principal; 2020-06-06 12:00)
DX: C78.7 Secondary malignant neoplasm of liver and intrahepatic bile duct (principal); C78.6 Secondary malignant neoplasm of retroperitoneum and peritoneum; C79.51 Secondary malignant neoplasm of bone; I10 Essential (primary) hypertension; J44.9 Chronic obstructive pulmonary disease, unspecified; K50.90 Crohn's disease, unspecified, without complications; I25.10 Atherosclerotic heart disease of native coronary artery without angina pectoris; F41.8 Other specified anxiety disorders; K21.9 Gastro-esophageal reflux disease without esophagitis; E78.5 Hyperlipidemia, unspecified; F17.210 Nicotine dependence, cigarettes, uncomplicated; E55.9 Vitamin D deficiency, unspecified; D64.9 Anemia, unspecified; Z85.118 Personal history of other malignant neoplasm of bronchus and lung
CPT/HCPCS: 36561; 77001; C1788; J0690; J1100; J1644; J1885; J2250; J2405; J2704; J3010; J7030; J7120

== ENCOUNTER 2020-06-09 13:26 | Emergency (ER) | payer OTHER, SELFPAY ==
[2020-06-09 13:28] VITALS: BP 94/52; PULSE 81; RESP 18; TEMP 36.4; O2SAT 98
[2020-06-09 14:01] LABS: Basophils Percent Auto 0.3 % (0.2-1.2); Eosinophils Percent Auto 0.2 % (0-4.4); Hematocrit 39.5 % (37.0-47.0); Hemoglobin 13.5 g/dL (12.0-15.0); Immature Granulocyte Absolute 0.07 K/mm3 (0.00-0.031); Immature Granulocyte Percent A 0.6 % (0-0.5); Lymphocytes Percent Auto 11.8 % (18.3-44.2); Mean Corpuscular HGB Conc 34.2 g/dl (32-36); Mean Corpuscular Hemoglobin 31.4 pg (26-34); Mean Corpuscular Volume 91.9 fl (80-100); Mean Platelet Volume 9.3 fl (7.4-10.4); Monocytes Absolute Auto 1.4 K/mm3 (0.1-0.6); Monocytes Percent Auto 10.7 % (2.6-8.5); Neutrophils Absolute Auto 9.7 K/mm3 (1.3-6.7); Neutrophils Percent Auto 76.4 % (45.5-73.1); Platelet Count Result 294 k/mm3 (150-375); Red Cell Distribution Width 13.8 % (11.5-14.5); White Blood Count 12.7 K/mm3 (4.5-10.0)
[2020-06-09 14:11] LABS: Alanine Aminotransferase 28 U/L (4-35); Albumin Level 3.7 g/dL (3.5-5.1); Alkaline Phosphatase 195 U/L (38-126); Anion Gap 8.7 mmol/L (7-16); Aspartate Amino Transferase 58 U/L (14-36); Bilirubin,Total 0.8 mg/dL (0.2-1.3); Blood Urea Nitrogen 12 mg/dL (7-17); Calcium 9.7 mg/dL (8.4-10.2); Carbon Dioxide 30 mmol/L (22-30); Chloride 95 mmol/L (98-107); Estimated CRCL calculation 49 ml/min; Estimated Glomerular Filt Rate > 60; Glucose 105 mg/dL (65-105); Lipase 44 U/L (23-300); Potassium 3.7 mmol/L (3.4-5.0); Sodium 130 mmol/L (137-145)
[2020-06-09 14:23] VITALS: BP 109/97; PULSE 69; RESP 31; TEMP 37.2; O2SAT 96
--- NOTE | 2020-06-09 14:24 | ED.GENADULT ---
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 Patient had liver biopsy and had Port-A-Cath placement to the right chest about 10 days ago. Patient been complaining of nausea, vomiting and diarrhea since that time. Patient denies any fever, chills, coughing or shortness of breath. According to her old records seem like patient have cancer with liver, bone and omentum metastasis. Related Data Home Medications Medication Instructions Recorded Confirmed metoprolol succinate 100 mg PO Q12H 04/08/20 06/06/20 nortriptyline 25 mg PO HS PRN 05/03/20 05/31/20 Allergies Allergy/AdvReac Type Severity Reaction Status Date / Time thiopental Allergy Intermediate CONFUSION Verified 06/09/20 15:42 zolpidem [From Ambien] AdvReac Intermediate Confusion Verified 06/09/20 15:42 codeine AdvReac Mild Vomiting Verified 06/09/20 15:42 Review of Systems Review of Systems: Narrative: CONSTITUTIONAL: Denies fever, chills, or sweats. EYES: Denies visual changes, redness, or discharge. ENT: Denies rhinorrhea, congestion, sore throat, or otalgia. CARDIOVASCULAR: Denies chest pain, palpitations, or edema. RESPIRATORY: Denies cough or dyspnea. GASTROINTESTINAL: Denies abdominal pain, nausea, vomiting, or diarrhea. GENITOURINARY: Denies dysuria or hematuria. SKIN: Denies rash or itching. MUSCULOSKELETAL: Denies back pain, joint pain, or myalgia. NEUROLOGIC: Denies headache, numbness, or weakness. PSYCHIATRIC: Denies anxiety or depression. [facility] Past Medical History Medical History Anemia (Unknown) Anxiety Cerebrovascular small vessel disease COPD (chronic obstructive pulmonary disease) (Unknown) Crohn's disease Depression Essential hypertension (Unknown) GERD without esophagitis Hyperlipidemia, unspecified Hypokalemia Hypomagnesemia Hyponatremia Insomnia Lung cancer Reticulonodular infiltrate present on imaging of chest Tobacco abuse (Unknown) Ulcerative colitis Vitamin D deficiency (Unknown) Surgical History Surgical History Hx of cholecystectomy Hx of colonoscopy Hx of esophagogastroduodenoscopy Hx of tubal ligation Family History Family History Father Cerebrovascular accident, Onset Age: 81 Family history of diabetes mellitus in first degree relative Patient's father is Mother Dementia Grandparent Throat cancer Other Acute myocardial infarction Diabetes mellitus Family history of coronary artery disease Family history of dementia Family history of malignant neoplasm of brain Hypertension Social History Social History Smoking packs per day: 0.75 Smoking cigarettes per day: 15.0 Years smoked: 30 Smoking pack-years: 22.50 Smoking status: Current every day smoker Tobacco type: cigarettes Alcohol intake: never Substance use: never Substance use type: does not use Additional living arrangements comments: She lives in [place] with her , Rosalino. Additional occupation/education comments: She works from home for a [employer] Gender identity (if verbalized by the patient): Female Spiritual care concerns: No Exam Narrative: Exam Narrative: General appearance: Well-developed, well-nourished Skin: Normal color Head: Normocephalic, nontraumatic Eyes: Clear conjunctiva ENT: Oropharynx normal, ears normal, nose normal Neck: Supple, nontender Chest and respiratory: Airway patent, no respiratory distress, no accessory muscle use Heart: Regular rate/rhythm Abdomen: Soft, mild to modera
[2020-06-09] MEDS: SODIUM CHLORIDE 0.9% IV 1,000 ML 999 ML IV CONT ×2 (14:26→15:36)
[2020-06-09] MEDS: ONDANSETRON INJ 4 MG/2 ML VIAL IV PUSH ×2 (14:26→15:36)
[2020-06-09 15:41] VITALS: BP 140/57; PULSE 74; RESP 23; TEMP 36.8; O2SAT 97
[2020-06-09 15:50] LABS: Add Urine Microscopic? NO; Appearance Urine Clear (Clear); Bilirubin Urine Negative (Negative); Blood Urine Negative (Negative); Color Urine Yellow (Yellow); Glucose Urine UA Negative (Negative); Ketones Urine Negative (Negative); Leukocyte Esterase Ur Negative LEU/UL (Negative); Nitrate Urine Negative (Negative); Protein Urine Negative (Negative); Specific Grav Ur 1.008 (1.001-1.035); Urobilinogen Urine Negative mg/dL (<2.0)
[2020-06-09 17:00] VITALS: BP 147/69; PULSE 72; RESP 28; TEMP 36.9
== END 2020-06-09 17:16 | disposition home or self-care (01) ==
PROVIDERS: Emergency Medicine; Emergency Provider Emergency Medicine; PCP Family Medicine
DX: K52.9 Noninfective gastroenteritis and colitis, unspecified (principal); E87.1 Hypo-osmolality and hyponatremia; C76.2 Malignant neoplasm of abdomen; C78.7 Secondary malignant neoplasm of liver and intrahepatic bile duct; C79.51 Secondary malignant neoplasm of bone; J44.9 Chronic obstructive pulmonary disease, unspecified; K50.90 Crohn's disease, unspecified, without complications; F32.9 Major depressive disorder, single episode, unspecified; F41.9 Anxiety disorder, unspecified; F17.210 Nicotine dependence, cigarettes, uncomplicated; Z86.2 Personal history of diseases of the blood and blood-forming organs and certain disorders involving the immune mechanism; K21.9 Gastro-esophageal reflux disease without esophagitis; E78.5 Hyperlipidemia, unspecified; Z85.118 Personal history of other malignant neoplasm of bronchus and lung
CPT/HCPCS: 36415; 80053; 81003; 83690; 85025; 96361; 96374; 96375; 96376; 99284; J1170; J2405; J7030

== ENCOUNTER 2020-07-03 12:28 | Outpatient (CLI) | payer OTHER, SELFPAY ==
--- NOTE | ~2020-07-03 | XR_ITS ---
EXAMINATION: XR chest 2V DATE: 07/03/2020 12:45 INDICATION: Pleural effusion. TECHNIQUE: Frontal and lateral views of the chest were obtained. COMPARISON: Chest single view 06/06/2020, PET CT 05/04/2020 FINDINGS: There is a moderate-sized right pleural effusion. There are airspace opacities in right upp er lobe. There are multiple subcentimeter nodules in left lung. No pneumothorax. The heart size is no rmal. Calcified left hilar lymph nodes are consistent with old granulomatous disease. Surgical clips in the right upper quadrant are likely from cholecystectomy. There is a right internal jugular port w ith tip at superior cavoatrial junction. IMPRESSION: 1. Worsened moderate-sized right pleural effusion. 2. Worsened right upper lobe airspace opacities, consistent with malignancy and pneumonia. 3. Persistent left lung nodules, consistent with metastatic disease. Reviewed, dictated and finalized at location B.
== END 2020-07-03 12:29 | disposition home or self-care (01) ==
LOC: ANHIMG 12:30
PROVIDERS: PCP Family Medicine; Visit Provider Internal Medicine Hematology & Oncology
DX: J90 Pleural effusion, not elsewhere classified (principal); R91.8 Other nonspecific abnormal finding of lung field
CPT/HCPCS: 71046

== ENCOUNTER 2020-07-06 08:49 | Outpatient (CLI) | payer OTHER, SELFPAY ==
--- NOTE | 2020-07-06 | ECHO_ITS ---
Patient Info Name: Tena Medrano Age: 64 years : 1955 Gender: Female Ht: 61 in Wt: 130 lbs BSA: 1.60 m2 HR: 103 bpm BP: 132 / 56 mmHg Technical Quality: Good Exam Date: 07/06/2020 9:42 AM Exam Location: [facility] Patient Status: Outpatient Admit Date: 07/06/2020 Staff Ordering Physician: Rolf Conway MD Full Roll Inspector: Shanda Taylor RCS Attending Provider: Rolf Conway MD Referring Physician: Man CASTELAN; Exam Type: CA echo doppler color flow Study Info Indications - pre chemo hx/o ca Complete two-dimensional, color flow and Doppler transthoracic echocardiogram is performed. Summary 1. Complete two-dimensional, color flow and Doppler transthoracic echocardiogram is performed. 2. Left ventricular systolic function is hyperdynamic, estimated at >70%. 3. There is moderately increased left ventricular wall thickness. 4. The left ventricular diastolic function is grade I diastolic dysfunction. 5. There is moderate aortic valve sclerosis. 6. There is trace tricuspid valve regurgitation. 7. Mild pulmonary hypertension, estimated pulmonary arterial systolic pressure is 42 mmHg. Left Ventricle Left ventricular chamber dimension is normal. Left ventricular systolic function is hyperdynamic, estimated at >70%. There is moderately increased left ventricular wall thickness. The left ventricular diastolic function is grade I diastolic dysfunction. Right Ventricle Right ventricular chamber dimension is normal. Right ventricular systolic function is normal. Left Atria Left atrial chamber dimension is normal. Right Atria Right atrial chamber dimension is normal. Atrial Septum Intact interatrial septum visualized by color flow imaging. Aortic Valve The aortic valve is trileaflet. There is moderate aortic valve sclerosis. There is no aortic valve stenosis. There is no aortic valve regurgitation. Pulmonic Valve The pulmonic valve is not well visualized. There is no pulmonic valve stenosis. There is no pulmonic regurgitation. Mitral Valve The mitral valve has normal leaflets. There is no mitral valve stenosis. There is no mitral valve regurgitation. Tricuspid Valve The tricuspid valve leaflets are normal. There is no significant tricuspid valve stenosis. There is trace tricuspid valve regurgitation. Mild pulmonary hypertension, estimated pulmonary arterial systolic pressure is 42 mmHg. Pericardium/Pleural The pericardium appears normal. There is small pericardial effusion. Inferior Vena Cava Normal inferior vena cava with >50% collapse upon inspiration consistent with normal right atrial pressure, 5 mmHg. Aorta The aortic root size at the sinus of Valsalva is normal. The prox ascending aorta size is normal. Left Ventricular Outflow Tract Name Value Normal LVOT 2D LVOT Diameter 2.0 cm LVOT Doppler LVOT Peak Gradient 4 mmHg LVOT Mean Gradient 2 mmHg LVOT VTI 17 cm LVOT VTI/AV VTI Ratio 0.8 LVOT Stroke Volume
== END 2020-07-06 08:50 | disposition home or self-care (01) ==
LOC: ANHCARD 08:50
PROVIDERS: PCP Family Medicine; Visit Provider Internal Medicine Hematology & Oncology
DX: Z51.11 Encounter for antineoplastic chemotherapy (principal); I35.8 Other nonrheumatic aortic valve disorders; I27.20 Pulmonary hypertension, unspecified
CPT/HCPCS: 93306

== ENCOUNTER 2020-07-10 01:25 | Outpatient (CLI) | payer OTHER, SELFPAY ==
[2020-07-10 16:17] LABS: SARS-CoV-2 RNA PCR Negative
== END 2020-07-10 01:26 | disposition home or self-care (01) ==
LOC: ANHCOVIDDT 01:25
PROVIDERS: PCP Family Medicine; Visit Provider Internal Medicine Hematology & Oncology
DX: Z01.812 Encounter for preprocedural laboratory examination (principal); Z20.828 Contact with and (suspected) exposure to other viral communicable diseases
CPT/HCPCS: 87635; C9803; U0003

== ENCOUNTER 2020-07-12 07:51 | Outpatient (CLI) | payer OTHER, SELFPAY ==
[2020-07-12] VITALS (8 sets, daily range): BP systolic 89–129; BP diastolic 60–80; PULSE 75–91; RESP 18–22; TEMP 36.6; O2SAT 93–97
--- NOTE | ~2020-07-12 | US_ITS ---
EXAMINATION: US abdomen limited DATE: 07/12/2020 10:20 INDICATION: Malignant ascites TECHNIQUE: Multiple grayscale and Doppler ultrasound images of the abdomen were obtained. COMPARISON: None FINDINGS: No ascites identified the 4 quadrants of the abdomen. Incidentally noted is a right pleural effusion. IMPRESSION: 1. No evident ascites in the abdomen. Planned paracentesis was deferred. Reviewed, dictated and finalized at location B.
--- NOTE | ~2020-07-12 | XR_ITS ---
EXAMINATION: XR chest 1V DATE: 07/12/2020 10:13 INDICATION: Right pleural effusion status post thoracentesis. TECHNIQUE: A single frontal view of the chest was obtained. COMPARISON: Chest 2 views 07/03/2020, PET CT 05/04/2020 FINDINGS: There is complete collapse of right lung upper lobe. There is elevation of right hemidiaphr agm. There are peripheral airspace opacities in right mid and lower lung zones. There are scattered n odules in left lung. Calcified left hilar lymph nodes are consistent with old granulomatous disease. No pleural effusion or pneumothorax. The heart size is normal. There is a right internal jugular port with tip at superior cavoatrial junction. Surgical clips in the right upper quadrant are likely from cholecystectomy. IMPRESSION: 1. Complete collapse of right lung upper lobe. 2. Peripheral airspace opacities in right mid and lower lung zones, consistent with atelectasis versu s pneumonia. 3. Persistent left lung nodules, consistent with metastatic disease. Reviewed, dictated and finalized at location A. IMPRESSION: 1. Complete collapse of right lung upper lobe. 2. Peripheral airspace opacities in right mid and lower lung zones, consistent with atelectasis versus pneumonia. 3. Persistent left lung nodules, consistent with metastatic disease.
--- NOTE | ~2020-07-12 | US_ITS ---
EXAMINATION: US thoracentesis DATE: 07/12/2020 10:24 INDICATION: pleural effusion TECHNIQUE: The procedure and its risks, benefits, and alternatives were discussed with the patient. P otential risks discussed included bleeding, infection, and pneumothorax. The patient understood the r isks and agreed to proceed. The skin was prepped and draped in sterile fashion. 1% lidocaine was used for local anesthesia. Under ultrasound guidance, a 5 Fr catheter with trochar was advanced into the right pleural effusion. Fluid was aspirated. The catheter was removed, and a dressing was applied. Th ere were no immediate complications. FINDINGS: Ultrasound images demonstrate a right pleural effusion and the catheter within the fluid. IMPRESSION: 1. Successful ultrasound-guided thoracentesis yielding 850 mL of dark giancarlo-colored fluid. Reviewed, dictated and finalized at location A. IMPRESSION: 1. Successful ultrasound-guided thoracentesis yielding 850 mL of dark giancarlo-co lored fluid.
[2020-07-12 08:44] LABS: Basophils Absolute Auto 0.1 K/mm3 (0.0-0.1); Basophils Percent Auto 0.7 % (0.2-1.2); Hematocrit 33.8 % (37.0-47.0); Hemoglobin 11.7 g/dL (12.0-15.0); Immature Granulocyte Absolute 0.21 K/mm3 (0.00-0.031); Immature Granulocyte Percent A 1.5 % (0-0.5); Immature Platelet Fraction Pct 6.9 % (0.9-11.2); Lymphocytes Absolute Auto 0.62 K/mm3 (0.9-3.2); Lymphocytes Percent Auto 4.3 % (18.3-44.2); Mean Corpuscular HGB Conc 34.6 g/dl (32-36); Mean Corpuscular Hemoglobin 30.3 pg (26-34); Mean Corpuscular Volume 87.6 fl (80-100); Mean Platelet Volume 11.2 fl (7.4-10.4); Monocytes Absolute Auto 0.1 K/mm3 (0.1-0.6); Monocytes Percent Auto 0.6 % (2.6-8.5); Neutrophils Absolute Auto 13.4 K/mm3 (1.3-6.7); Neutrophils Percent Auto 92.9 % (45.5-73.1); Nucleated Red Blood Cells Absolute Auto 0.1 K/mm3 (0.0-0.012); Nucleated Red Blood Cells Perc 0.9 % (0.0-0.2); Platelet Count Result 152 k/mm3 (150-375); Red Blood Count 3.86 M/mm3 (4.2-5.4); White Blood Count 14.4 K/mm3 (4.5-10.0)
[2020-07-12 08:53] LABS: INR 1.3; Prothrombin Time 16.1 Seconds (11.1-14.7)
== END 2020-07-12 12:19 | disposition home or self-care (01) ==
PROVIDERS: Radiology Diagnostic Radiology; PCP Family Medicine; Visit Provider Internal Medicine Hematology & Oncology
DX: R18.0 Malignant ascites (principal); R91.8 Other nonspecific abnormal finding of lung field
CPT/HCPCS: 32555; 36415; 71045; 76705; 85025; 85055; 85610

== ENCOUNTER 2020-07-24 16:46 | Inpatient (IN) | payer OTHER, SELFPAY ==
--- NOTE | ~2020-07-24 | CT_ITS ---
EXAMINATION: CT brain wo con DATE: 07/24/2020 17:49 INDICATION: Unresponsive. TECHNIQUE: Computed tomography (CT) of the head was performed without intravenous contrast. The mA wa s adjusted according to patient size. Iterative reconstruction technique was employed. The dose-lengt h product was 1135.00 mGy-cm. COMPARISON: Head CT 04/09/2020 FINDINGS: There is 11 mm hyperdense mass in the left frontoparietal deep white matter. There are area s of low-attenuation in the left parietal and occipital lobes. There is no intracranial hemorrhage. T here are scattered areas of low attenuation in the cerebral white matter. The ventricles are normal i n size. There is mild mucosal thickening in the ethmoid sinuses. The mastoid air cells are normal. Th ere are dystrophic calcifications in the posterior ocular globes. IMPRESSION: 1. Worsened 11 mm hyperdense mass in the left frontoparietal deep white matter, consistent with metas tatic disease. 2. Areas of low-attenuation in the left parietal and occipital lobes, which may be metastatic disease and/or age-indeterminate infarcts. Consider brain MRI without and with contrast. 3. Moderate nonspecific cerebral white matter disease, which likely represents chronic small vessel i schemic disease. Reviewed, dictated and finalized at location A. IMPRESSION: 1. Worsened 11 mm hyperdense mass in the left frontoparietal deep white matter, consistent with metastatic disease. 2. Areas of low-attenuation in the left parietal and occipital lobes, which may be metastatic disease and/or age-indeterminate infarcts. Consider brain MRI wi thout and with contrast. 3. Moderate nonspecific cerebral white matter disease, which likely represents chronic small vessel ischemic disease.
--- NOTE | ~2020-07-24 | XR_ITS ---
EXAMINATION: XR chest 1V portable DATE: 07/24/2020 18:03 INDICATION: Unresponsive. TECHNIQUE: A single frontal view of the chest was obtained. COMPARISON: Chest single view 07/12/2020, PET CT 05/04/2020 FINDINGS: There is complete collapse of right upper lobe with elevation of right hemidiaphragm. There are scattered nodules in the lungs. There are interstitial opacities bilaterally, consistent with mi ld pulmonary edema. Calcified left hilar lymph nodes are consistent with old granulomatous disease. T here is a small right pleural effusion. No pneumothorax. The heart size is normal. Surgical clips in the right upper quadrant are likely from cholecystectomy. There is a right internal jugular port with tip at superior cavoatrial junction. IMPRESSION: 1. Persistent complete collapse of right lung upper lobe secondary to primary bronchogenic carcinoma. 2. Pulmonary nodules, consistent with metastatic disease. 3. Mild pulmonary edema. 4. Small right pleural effusion. Reviewed, dictated and finalized at location A. IMPRESSION: 1. Persistent complete collapse of right lung upper lobe secondary to primary b ronchogenic carcinoma. 2. Pulmonary nodules, consistent with metastatic disease. 3. Mild pulmonary edema. 4. Small right pleural effusion.
[2020-07-24 16:49] VITALS: BP 106/85; PULSE 161; RESP 28; TEMP 37.5; O2SAT 100
--- NOTE | 2020-07-24 16:52 | ECG_ITS ---
Measurements Intervals [place] Rate: 167 P: [place]: 0 QRS: -1 QRSD: 94 T: 70 QT: 283 QTc: 472 Interpretive Statements SUPRAVENTRICULAR TACHYCARDIA NONSPECIFIC ST & T-WAVE ABNORMALITY- LAT/HIGH LAT LEADS ABNORMAL ECG Electronically Signed On 07-24-2020 17:19:55 CDT by Kwan Prieto D.O.
[2020-07-24 17:07] LABS: Alveolar/Arterial O2 Gradient 360.6 mmHg; Base Excess ABG -11.9 mEq/l (+/-2.0); Fractional Inspired Oxygen 100 %; HCO3 ABG 13.7 mEq/l (22.0-26.0); Oxygen Content ABG 18.1 %vol (16.0-22.0); Oxygen Saturation ABG 99.7 % (95.0-100.0); Oxyhemoglobin 98.2 % THb (90.0-100.0); PCO2 ABG 30.5 mmHg (35.0-45.0); PO2 ABG 321.9 mmHg (80.0-100.0); PO2 FiO2 Ratio Arterial Blood 3.22 %; Total Hemoglobin 12.5 g/dL (12.0-18.0)
[2020-07-24 17:08] LABS: Device NON-REBREATHER MASK; Site Drawn RIGHT BRACHIAL
[2020-07-24 17:13] LABS: Hematocrit 36.4 % (37.0-47.0); Hemoglobin 12.1 g/dL (12.0-15.0); Mean Corpuscular HGB Conc 33.2 g/dl (32-36); Mean Corpuscular Hemoglobin 29.6 pg (26-34); Mean Platelet Volume 11.7 fl (7.4-10.4); Platelet Count Result 539 k/mm3 (150-375); Red Blood Count 4.09 M/mm3 (4.2-5.4); Red Cell Distribution Width 14.6 % (11.5-14.5); White Blood Count 13.4 K/mm3 (4.5-10.0)
[2020-07-24] MEDS: SODIUM CHLORIDE 0.9% IV 1,000 ML 999 ML IV CONT (17:15)
[2020-07-24] MEDS: levETIRAcetam 1000MG/NACL100ML 1,000 MG/100 ML BAG 400 MG IVPB (17:15)
[2020-07-24 17:21] LABS: INR 1.4; Prothrombin Time 16.9 Seconds (11.1-14.7)
[2020-07-24 17:22] LABS: Partial Thromboplastin Time 30.4 SECONDS (22.3-36.8)
[2020-07-24] MEDS: ONDANSETRON INJ 4 MG/2 ML VIAL IV PUSH (17:22)
[2020-07-24 17:24] VITALS: O2SAT 100
[2020-07-24 17:30] LABS: Albumin Level 3.4 g/dL (3.5-5.1); Alkaline Phosphatase 515 U/L (38-126); Anion Gap 17 mmol/L (8-16); Bilirubin,Total 1.1 mg/dL (0.2-1.3); Blood Urea Nitrogen 11 mg/dL (7-17); Calcium 7.8 mg/dL (8.4-10.2); Carbon Dioxide 19 mmol/L (22-30); Chloride 100 mmol/L (98-107); Estimated CRCL calculation 51 ml/min; Estimated Glomerular Filt Rate > 60; Glucose 126 mg/dL (65-105); Lactic Acid Reflex 10.2 mmol/L (0.7-2.1); Sodium 136 mmol/L (137-145)
[2020-07-24 17:34] LABS: Atypical Lymphocytes Present; Band Neutrophils Percent 1 % (0-6); Metamyelocytes Percent 4 %; Monocytes Absolute Manual 1.34 K/mm3 (0.1-0.90); Monocytes Percent Manual 10 % (3-9); Neutrophils Absolute Manual 3.21 K/mm3 (1.7-7.2); Neutrophils Percent Manual 23 % (46-73); Nucleated Red Blood Cells 8 %; Platelet Estimate Increased (Adequate); Smudge Cells FEW; Total Cells Counted 100
[2020-07-24 17:38] LABS: Troponin I 0.032 ng/mL (0.000-0.034)
[2020-07-24 17:43] LABS: Alanine Aminotransferase 72 U/L (4-35); Aspartate Amino Transferase 101 U/L (14-36)
--- NOTE | 2020-07-24 17:58 | ED.AMS ---
HPI - Altered Mental Status General Chief Complaint: Altered Mental Status Stated Complaint: Unresponsive Time Seen by Provider: 07/24/20 16:52 Source: family Mode of arrival: EMS Limitations: clinical condition History of Present Illness HPI narrative: This patient is a 64 year old female who presents for evaluation of unresponsiveness. 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 This morning he noticed that patient appeared to have a cognitive decline. He states she was talking gibberish and she was having trouble walking. This afternoon he states he was trying to take her to bathroom and she fell. He states she started looking like she was having a seizure. He reports she straightedned her legs and started shaking. EMS found her unresponsive and snoring. Patient does have a living will signed that states she does not want to be intubated. Related Data Home Medications Medication Instructions Recorded Confirmed metoprolol succinate 100 mg PO Q12H 04/08/20 07/11/20 potassium chloride 20 meq PO DAILY 07/03/20 07/11/20 ondansetron 8 mg PO Q8H PRN 07/07/20 07/11/20 Allergies Allergy/AdvReac Type Severity Reaction Status Date / Time thiopental Allergy Intermediate CONFUSION Verified 07/11/20 12:11 zolpidem [From Ambien] AdvReac Intermediate Confusion Verified 07/11/20 12:11 codeine AdvReac Mild Vomiting Verified 07/11/20 12:11 Review of Systems Review of Systems: ROS unobtainable: Yes unobtainable due to mental status PMFSH Past Medical History Medical History Anemia (Unknown) Anxiety Cerebrovascular small vessel disease COPD (chronic obstructive pulmonary disease) (Unknown) Crohn's disease Depression Essential hypertension (Unknown) GERD without esophagitis Hyperlipidemia, unspecified Hypokalemia Hypomagnesemia Hyponatremia Insomnia Lung cancer Reticulonodular infiltrate present on imaging of chest Tobacco abuse (Unknown) Ulcerative colitis Vitamin D deficiency (Unknown) Surgical History Surgical History Hx of cholecystectomy Hx of colonoscopy Hx of esophagogastroduodenoscopy Hx of tubal ligation Social History Social History Smoking packs per day: 2 Smoking cigarettes per day: 40.0 Years smoked: 20 Smoking pack-years: 40.00 Smoking status: Former smoker Tobacco type: cigarettes Smoking end date: 06/01/20 Alcohol intake: never Substance use: never Substance use type: does not use Additional living arrangements comments: She lives in [place] with her , Rosalino. Additional occupation/education comments: She works from home for a [employer] Gender identity (if verbalized by the patient): Female Spiritual care concerns: No Exam Const: General: ill appearing Limitations: altered mental status (snoring) Eyes: Pupils: Dilated pupils bilaterally (nonresponsive) EOM: EOMs intact bilaterally Chest: Chest palpation & inspection: normal inspection of the chest Resp: Effort & Inspection: no retractions, tachypneic and no use of accessory muscles Auscultation: clear to auscultation bilaterally Cardio: Rate: tachycardic Rhythm: regular rhythm Heart sounds: no murmurs GI: GI Palp: Yes Soft to palpation, No Tenderness to palpation present (GI), No Guarding due to palpation present (GI) and No Rigid due to palpation Neuro: Other: unable to assess movement Extrem: General: no pedal edema Course Reevaluation(s) Reevaluation #1: Patient's and son are at bedside. I discussed poor prognosis and CT scan. They understand that will need comfort care. states if patient needs intubation over night he wants her to be intubated even those her living will states different. He wants to make sure her out of town son can s
[2020-07-24 18:46] LABS: Add Urine Microscopic? YES; Appearance Urine Cloudy (Clear); Bilirubin Urine Negative (Negative); Blood Urine 2+ (Negative); Color Urine Yellow (Yellow); Glucose Urine UA Negative (Negative); Ketones Urine Negative (Negative); Leukocyte Esterase Ur Negative LEU/UL (Negative); Mucus Urine Rare /lpf; Nitrate Urine Negative (Negative); Protein Urine 2+ mg/dL (Negative); Specific Grav Ur 1.019 (1.001-1.035); Squamous Epithelial Cell Urine Rare /hpf (Few); WBC Urine 21-30 /hpf
[2020-07-24 18:51] VITALS: BP 110/78; PULSE 116; RESP 18; O2SAT 100
[2020-07-24] MEDS: LACTATED RINGERS 1,000 ML 999 ML IV CONT (18:51)
[2020-07-24 18:57] LABS: Amphetamine Screen Urine Negative (Negative); Barbiturate Screen Urine Negative (Negative); Benzodiazepines Screen Urine Positive (Negative); Cannabinoid Screen Urine Positive (Negative); Cocaine Screen Urine Negative (Negative); Methadone Screen Urine Negative (Negative); Opiate Screen Urine Negative (Negative); Phencyclidine Screen Urine Negative (Negative)
--- NOTE | 2020-07-24 19:13 | PC.NURSE ---
pt is difficult stick, nurse attempted to pull from port was unsuccessfu, called lab to draw pt
[2020-07-24 20:10] LABS: Reflex Lactic Acid Yes or No Add Lactic
[2020-07-24 20:50] VITALS: BP 142/79; PULSE 107; RESP 22; TEMP 36.9; O2SAT 100; BMI 17.4
[2020-07-24 21:04] LABS: Ammonia 14 umol/L (9-30); Ethanol < 10 mg/dL (<10); Lactic Acid 3.4 mmol/L (0.7-2.1)
[2020-07-24 21:24] VITALS: BP 142/78; PULSE 98; RESP 20; O2SAT 99
[2020-07-24 22:57] LABS: Glucose Point of Care 98 (65-105)
--- NOTE | 2020-07-24 23:38 | ADMGEN ---
This patient, Tena Medrano, was admitted to [facility] Surg Room 312-01. Patient/family oriented to hospital policies and general routines including ID bracelet, bed and alarms, visiting hours, pain management, procedures, bathroom and other care routines, personal items, smoking policy, room service/diet, and visiting hours. Valuables list has been completed. Information on how to activate the Rapid Response Team has been discussed. Patient/Family are encouraged to report perceived risks to care and to ask questions if they do not understand what they are told or what they should do.
[2020-07-25] VITALS (7 sets, daily range): BP systolic 133–135; BP diastolic 65–66; PULSE 84–96; RESP 16–20; TEMP 36.6–36.9; O2SAT 95–100; BMI 17.4
--- NOTE | 2020-07-25 00:04 | PM.IMHP ---
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 She had a CT-guided biopsy on May 18 of this year came back positive for adeno carcinoma. She also had a thoracentesis and pleural fluid came back positive for metastatic adeno carcinoma. Her mammogram was negative. They were unable to do an MRI due to the patient inability lay flat. The patient had been seeing Dr. cardenas. The patient came into the emergency room and was the unresponsive. The patient was talking gibberish at home and was having difficulty walking. Patient had a cognitive decline. The was trying to take her to the bathroom she fell. Patient started look like she was having a seizure. EMS found her unresponsive and snoring. There is no be at the bedside with the patient she was alone. She has snoring respirations and has oxygen on. And it shows worsened 11 mm hyperdense mass in the left frontal parietal deep white matter consistent with metastatic disease. Areas of low attenuation of the left parietal occipital lobe which may be metastatic disease and or age-indeterminate infarcts consider brain MRI with and without contrast. Dr. cardenas did was notified and recommended steroids. He also stated he would see the patient tomorrow on possibly consider hospice. The stated he wanted to make her comfort measures but did not want to make her DNR at this time. He if she went into arrest during the night he did want her to be intubated so that her son can come in from out of town and stays goodbyes. The patient was given Decadron and IV fluids. She is placed on oxygen. She was given a dose of Keppra as well. Date of service 07/25/2020 Review of Systems Review of Systems: All systems reviewed & are unremarkable except as noted in HPI and below Constitutional: Constitutional: Reports as per HPI and Reports no additional constitutional complaints Eyes: Eyes: Reports as per HPI and Reports no additional eye complaints ENT: Reports system reviewed and no additional complaints, except as documented and Reports Normal hearing present Cardiovascular: Cardiovascular: Reports no additional cardiovascular complaints Respiratory: Respiratory: Reports no additional respiratory complaints and Reports no additional respiratory complaints Gastrointestinal: Gastrointestinal: Reports as per HPI and Reports no additional gastrointestinal complaints Musculoskeletal: Musculoskeletal: Reports no additional musculoskeletal complaints Integumentary/Breasts: Skin/Breast: Reports system reviewed and no additional complaints, except as docu and Reports as per HPI Neurologic: Reports system reviewed and no additional complaints, except as documented, Reports as per HPI and Reports Normal hearing present Psychiatric: Psychiatric: Reports no additional psychiatric complaints and Reports as per HPI Endocrine: Endocrine: Reports no additional endocrine complaints Hematologic/Lymphatic: Hematologic/Lymphatic: Reports no additional hematologic/lymphatic complaints Allergic/Immunologic: Allergic/Immunologic: Reports no additional allergic/immunologic complaints [facility] Past Medical History Medical History Anemia (Unknown) Anxiety Cerebrovascular small vessel disease COPD (chronic obstructive pulmonary disease) (Unknown) Crohn's disease Depression Essential hypertension (Unknown) GERD without esophagitis Hyperlipidemia, unspecified Hypokalemia Hypomagnesemia Hyponatremia Insomnia Lung cancer Reticulonodular infiltrate present on imaging of chest Tobacco abuse (Unknown) Ulcerative colitis Vitamin D deficiency (Unknown) Surgical History Surgical History Hx of cholecyst
[2020-07-25 06:01] LABS: Basophils Absolute Auto 0.1 K/mm3 (0.0-0.1); Hematocrit 28.6 % (37.0-47.0); Immature Granulocyte Absolute 0.79 K/mm3 (0.00-0.031); Immature Granulocyte Percent A 15.7 % (0-0.5); Lymphocytes Absolute Auto 1.33 K/mm3 (0.9-3.2); Lymphocytes Percent Auto 26.5 % (18.3-44.2); Mean Corpuscular Hemoglobin 29.9 pg (26-34); Mean Corpuscular Volume 85.4 fl (80-100); Mean Platelet Volume 11.1 fl (7.4-10.4); Monocytes Absolute Auto 0.5 K/mm3 (0.1-0.6); Monocytes Percent Auto 9.8 % (2.6-8.5); Neutrophils Absolute Auto 2.4 K/mm3 (1.3-6.7); Nucleated Red Blood Cells Absolute Auto 0.1 K/mm3 (0.0-0.012); Platelet Count Result 397 k/mm3 (150-375); Red Blood Count 3.35 M/mm3 (4.2-5.4); Red Cell Distribution Width 13.9 % (11.5-14.5)
[2020-07-25 06:14] LABS: Alanine Aminotransferase 62 U/L (4-35); Albumin Level 2.7 g/dL (3.5-5.1); Alkaline Phosphatase 415 U/L (38-126); Anion Gap 8 mmol/L (8-16); Aspartate Amino Transferase 78 U/L (14-36); Bilirubin,Total 1.1 mg/dL (0.2-1.3); Blood Urea Nitrogen 9 mg/dL (7-17); Calcium 6.9 mg/dL (8.4-10.2); Carbon Dioxide 26 mmol/L (22-30); Chloride 100 mmol/L (98-107); Estimated CRCL calculation 69 ml/min; Estimated Glomerular Filt Rate > 60; Glucose 102 mg/dL (65-105); Potassium 2.3 mmol/L (3.4-5.0); Sodium 134 mmol/L (137-145)
[2020-07-25] MEDS: MAGNESIUM SULF 2 GM/WATER 50ML 2 GM/50 ML BAG IVPB (08:39)
[2020-07-25] MEDS: levETIRAcetam 500 MG TABLET PO (08:40)
[2020-07-25 09:32] LABS: Glucose Point of Care 104 (65-105)
[2020-07-25 12:50] LABS: Glucose Point of Care 148 (65-105)
--- NOTE | 2020-07-25 13:38 | WPDNEURCNPN ---
Assessment and Plan Assessment and plan (1) Brain metastasis: Code(s): C79.31 - Secondary malignant neoplasm of brain Status: Acute (2) Metastatic cancer: Code(s): C79.9 - Secondary malignant neoplasm of unspecified site Status: Acute (3) Metastasis to liver: Onset Date: ~04/2020 Code(s): C78.7 - Secondary malignant neoplasm of liver and intrahepatic bile duct Status: Acute (4) Depression: Code(s): F32.9 - Major depressive disorder, single episode, unspecified Status: Acute (5) COPD (chronic obstructive pulmonary disease): Onset Date: Unknown Qualifiers: COPD type: unspecified COPD Qualified Code(s): J44.9 - Chronic obstructive pulmonary disease, unspecified Code(s): J44.9 - Chronic obstructive pulmonary disease, unspecified Status: Acute (6) Seizures: Code(s): R56.9 - Unspecified convulsions Status: Acute Additional Plan the present management with Keppra and the dexamethasone needs to be continued and wait for the oncologist to discussed the situation with the family members both the and her oldest son were present at the time of the interview and they understand the situation fairly well Consult date: 07/25/20 Time Seen: 13:00 HPI: Tena Medrano is a 64 year old female who is right-handed is matted with clinical description of the tonic seizure witnessed by her who was present at the time of the interview seizures were not too long probably a few minutes or so and the it was followed by a postictal confusion however no lateralizing deficit the woman has a metastatic disease to the brain and it makes sense that the seizure was triggered by this lesion the daughter was reviewed with the the son present and they feel that the her cognition has been declining in the past couple of weeks particularly the short-term memory which is quite evident during the examination 1 thing which stand out in the history that the told me and that is based on his conversation with the oncologist that the patient may well have primary in her breasts be based on the biopsy results in any event neurologically she is quite comfortable and not any distress Review of Systems Review of Systems: All systems reviewed & are unremarkable except as noted in HPI and below PMFSH Past Medical History Medical History Anemia (Unknown) Anxiety Cerebrovascular small vessel disease COPD (chronic obstructive pulmonary disease) (Unknown) Crohn's disease Depression Essential hypertension (Unknown) GERD without esophagitis Hyperlipidemia, unspecified Hypokalemia Hypomagnesemia Hyponatremia Insomnia Lung cancer Reticulonodular infiltrate present on imaging of chest Tobacco abuse (Unknown) Ulcerative colitis Vitamin D deficiency (Unknown) Surgical History Surgical History Hx of cholecystectomy Hx of colonoscopy Hx of esophagogastroduodenoscopy Hx of tubal ligation Family History Family History Father Cerebrovascular accident, Onset Age: 81 Family history of diabetes mellitus in first degree relative Patient's father is Mother Dementia Grandparent Throat cancer Other Acute myocardial infarction Diabetes mellitus Family history of coronary artery disease Family history of dementia Family history of malignant neoplasm of brain Hypertension Social History Social History Smoking packs per day: 1.5 Smoking cigarettes per day: 30.0 Years smoked: 40 Smoking pack-years: 60.00 Smoking status: Former smoker Tobacco type: cigarettes Smoking end date: 04/14/20 Alcohol intake: never Substance use: current Substance use type: marijuana and sedatives Additional living arrangements co
[2020-07-25] MEDS: CENTRAL LINE FLUSH 10 ML IV PUSH (14:00)
[2020-07-25 14:29] LABS: Anion Gap 6 mmol/L (8-16); Blood Urea Nitrogen 9 mg/dL (7-17); Calcium 6.8 mg/dL (8.4-10.2); Carbon Dioxide 26 mmol/L (22-30); Chloride 100 mmol/L (98-107); Estimated CRCL calculation 69 ml/min; Estimated Glomerular Filt Rate > 60; Glucose 99 mg/dL (65-105); Potassium 2.9 mmol/L (3.4-5.0); Sodium 132 mmol/L (137-145)
--- NOTE | 2020-07-25 15:10 | PM.DS ---
DS: Admitting Diagnosis Admitting Diagnosis Admitting Diagnosis: metastatic cancer with mets to brain, seizure DS: Discharge Diagnosis Discharge Diagnosis (1) Brain metastasis: Code(s): C79.31 - Secondary malignant neoplasm of brain Status: Acute Assessment and Plan: -----brain Mets secondary to adenocarcinoma cancer without a definite primary. She was started on Decadron and Keppra which she will continue outpatient. She has been discharged to hospice. (2) Depression: Code(s): F32.9 - Major depressive disorder, single episode, unspecified Status: Acute Assessment and Plan: -----continue home meds, follow-up with hospice (3) COPD (chronic obstructive pulmonary disease): Onset Date: Unknown Qualifiers: COPD type: unspecified COPD Qualified Code(s): J44.9 - Chronic obstructive pulmonary disease, unspecified Code(s): J44.9 - Chronic obstructive pulmonary disease, unspecified Status: Acute Assessment and Plan: -----no acute issues at this time (4) Anxiety and depression: Onset Date: Unknown Code(s): F41.9 - Anxiety disorder, unspecified; F32.9 - Major depressive disorder, single episode, unspecified Status: Acute Assessment and Plan: -----chronic, continue medications (5) Hyperlipidemia, unspecified: Code(s): E78.5 - Hyperlipidemia, unspecified Status: Acute Assessment and Plan: Chronic (6) Essential hypertension: Onset Date: Unknown Code(s): I10 - Essential (primary) hypertension Status: Chronic DS: Summary Hospital Course Reason for hospitalization: Seizure Hospital Course: Patient is a 64-year-old female with advanced adenocarcinoma without definite primary who presented emergency room for involuntary movements, unresponsiveness and postictal state witnessed by her . Showed a worse in the Hi mm hyperdense mass in the left frontal parietal deep white matter consistent with metastatic disease also with low attenuation areas in the left parietal occipital lobes possibly metastatic disease or infarcts. I spoke with the patient and the family extensively about these findings and Decadron and Keppra were started and they would like to proceed with hospice. They were discharged home with hospice care. Dr. Conway notified. Status at Discharge Functional status at discharge: independent ambulation Overall status at discharge: patient is back to baseline Time Spent with Patient Time attestation: Total time spent providing and/or coordinating discharge services:38 min Time spent: Greater than 30 minutes Exam Narrative: Exam Narrative: General: Well developed well nourished patient in NAD HEENT: normocephalic Neck: supple Neuro: Alert and oriented x4l CN 2-12 intact. strength 5/5 UE and LE CV:RRR Resp:CTA Abd: Soft, non distended. No pain to palpation. Positive bowel sounds Extremities: No swelling, erythema, or pain to palpation. DS: Data Data Completed and Pending Labs on day of discharge: Labs from last 24 hours 07/25/20 07/25/20 07/25/20 14:07 12:08 08:50 WBC RBC Hgb Hct MCV MCH MCHC RDW Plt Count MPV Immature Gran % (Auto) Neut % (Auto) Lymph % (Auto) [place] % (Auto) Eos % (Auto) Baso % (Auto) Lymph # (Auto) [place] # (Auto) Eos # (Auto) Baso # (Auto) Abs Immat Gran (auto) Absolute Neuts (auto) Absolute Nucleated RBC Total Counted Neutrophils % (Manual) Band Neutrophils % Lymphocytes % (Manual) Monocytes % (Manual) Metamyelocytes % Nucleated RBC % Abs Neuts (Manual) Abs Lymphs (Manual) Abs Monocytes (Manual) Nucleated RBCs Atypical Lymphocytes Smudge Cells Platelet Estimate PT INR APTT Puncture Site ABG pH ABG pCO2 ABG pO2 ABG PO2/FiO2 Ratio ABG HCO3 ABG O2 Saturation AB
--- NOTE | 2020-07-25 17:50 | PDONCCN ---
HPI - Date of Consult Date/Time: 07/25/20 17:50 Requesting Physician: Estrellita Mcdonnell PA-C Primary Care Provider: Víctor Flores MD - Consult Narrative Reason for consult: Metastatic carcinoma of unknown primary Narrative: Tena Medrano is a 64 year old female This is a pleasant 64-year-old female who was diagnosed with adeno carcinoma of unclear primary site stage IV disease status post liver sitting I did biopsy on May 18, 2020 came back positive for adenocarcinoma. She also had thoracentesis done and showed metastatic adenocarcinoma. She received chemotherapy with Gemzar and Herceptin with the last treatment on July 11, 2020. Patient now came into the hospital with seizure activity. She was found to have hyperdense mass in the left frontal parietal deep white matter measures about 11 mm in size. She has been getting quite tired and fatigued and for rate full recently. According to the and the son her condition is declining rather quickly. He has been losing weight with poor appetite. Review of Systems - Review of Systems All systems reviewed & are unremarkable except as noted in HPI and bel - Neurologic Reports system reviewed and no additional complaints, except as documented, Reports hearing normal [facility] Medical History: Medical History (Last Reviewed 07/25/20 @ 13:41 by Rolf Stark MD) Anemia Onset Date: Unknown Anxiety Cerebrovascular small vessel disease COPD (chronic obstructive pulmonary disease) Onset Date: Unknown Crohn's disease Depression Essential hypertension Onset Date: Unknown GERD without esophagitis Hyperlipidemia, unspecified Hypokalemia Hypomagnesemia Hyponatremia Insomnia Lung cancer Reticulonodular infiltrate present on imaging of chest Tobacco abuse Onset Date: Unknown Ulcerative colitis Vitamin D deficiency Onset Date: Unknown Surgical History: Surgical History (Last Reviewed 07/25/20 @ 13:41 by Rolf Stark MD) Hx of cholecystectomy Hx of colonoscopy Hx of esophagogastroduodenoscopy Hx of tubal ligation Family History: Family History (Last Reviewed 07/25/20 @ 13:41 by Rolf Stark MD) Father Cerebrovascular accident, Onset Age: 81 Family history of diabetes mellitus in first degree relative Patient's father is Mother Dementia Grandparent Throat cancer Other Acute myocardial infarction Diabetes mellitus Family history of coronary artery disease Family history of dementia Family history of malignant neoplasm of brain Hypertension - Social History Social History: Social History (Last Reviewed 07/25/20 @ 13:41 by Rolf Stark MD) Gender Identity: Gender identity (if verbalized by the patient): Female Sexual Orientation: Sexual Orientation (if Verbalized by the Patient): Straight or Heterosexual Alcohol Use: Alcohol intake: never Substance Use: Substance use: current Substance use type: marijuana, sedatives Others: Spiritual care concerns: No Smoking Status: Smoking status: Former smoker Tobacco type: cigarettes Smoking end date: 04/14/20 Smoking Pack-years: Smoking packs per day: 1.5 Smoking cigarettes per day: 30.0 Years smoked: 40 Smoking pack-years: 60.00 Meds Home Medications Medication Instructions Recorded Confirmed Type metoprolol succinate 100 mg PO Q12H 04/08/20 07/25/20 History losartan 50 mg tablet 50 mg PO DAILY #30 tablet 04/13/20 07/25/20 Rx amlodipine 5 mg tablet 5 mg PO DAILY #90 tablet 04/24/20 07/25/20 Rx omeprazole 20 mg capsule,delayed 20 mg PO DAILY #90 cap 06/01/20 07/25/20 Rx release hydrocodone-acetaminophen [Davey] 1 tablet PO Q6H PRN #10 tablet 06/06/20 07/25/20 Rx loperamide [Imodium A-D] 2 mg PO Q4H PRN #14 cap 06/09/20 07/25/20 Rx rosuvastatin 40 mg tablet 40 mg PO DAILY #30 tablet 06/16/20 07/25/20 Rx escitalopram oxalate 20 mg tablet 20 mg PO DAILY #30 tablet
[2020-07-25 18:50] LABS: Glucose Point of Care 130 (65-105)
[2020-08-14 14:25] LABS: Glucose Point of Care 117 (65-105)
== END 2020-07-25 20:25 | disposition hospice, home (50) | DRG 55 ==
LOC: ANHED 19:53 → ANH3MEDSUR 07-25 07:13
PROVIDERS: Admitting Provider Hospitalist; Emergency Provider General Practice; PCP Family Medicine; Visit Provider Physician Assistant
DX: C79.31 Secondary malignant neoplasm of brain (principal); C78.7 Secondary malignant neoplasm of liver and intrahepatic bile duct; C80.1 Malignant (primary) neoplasm, unspecified; R56.9 Unspecified convulsions; J44.9 Chronic obstructive pulmonary disease, unspecified; F41.9 Anxiety disorder, unspecified; F32.9 Major depressive disorder, single episode, unspecified; E78.5 Hyperlipidemia, unspecified; I10 Essential (primary) hypertension; Z87.891 Personal history of nicotine dependence
CPT/HCPCS: 36415; 36600; 51702; 70450; 71045; 80048; 80053; 80307; 81001; 82140; 82805; 82948; 83605; 84443; 84484; 85025; 85610; 85730; 87040; 87077; 87086; 87088; 87186; 93005; 96365; 96375; 99285; A9270; J0131; J1100; J1642; J1953; J2060; J2405; J3475; J3480; J7030; J7120